=== PATIENT | male | born 1945 | race Caucasian/White ===

== ENCOUNTER 2016-12-02 10:03 | Inpatient (IN) | payer MEDICARE ==
[~2016-12-02] VITALS: Ht 193 cm; Wt 103.9 kg
[2016-12-02 10:22] LABS: BASOPHILS % (AUTO) 0.6 % (0.0-2.0); EOSINOPHILS # (AUTO) 0.1 /CMM (0.0-0.7); EOSINOPHILS % (AUTO) 1.5 % (0.0-6.0); HEMATOCRIT 39 % (39-51); LYMPHOCYTES # (AUTO) 2.2 /CMM (0.8-4.8); LYMPHOCYTES % (AUTO) 36.9 % (20.0-44.0); MEAN CORPUSCULAR HEMOGLOBIN 33 PG (26.0-33.0); MEAN CORPUSCULAR HGB CONC 33 g/dl (31.0-36.0); MEAN CORPUSCULAR VOLUME 99 fL (80-96); MONOCYTES # (AUTO) 0.3 /CMM (0.1-1.30); MONOCYTES % (AUTO) 4.8 % (2.0-12.0); NEUTROPHILS # (AUTO) 3.3 /CMM (1.8-8.9); NEUTROPHILS % (AUTO) 56.2 % (43.0-81.0); PLATELET COUNT (AUTO) 241 /CMM (150-450); RDW COEFFICIENT OF VARIATION 14.1 (11.5-15.0); RED BLOOD CELL COUNT(AUTO) 3.95 MIL/uL (4.5-6.0); WHITE BLOOD COUNT (AUTO) 5.9 K/uL (4.3-11.0)
[2016-12-02] MEDS ORDERED: ASPIRIN 325 MG TABLET ONE (10:22)
[2016-12-02] MEDS ORDERED: ONDANSETRON HCL/PF 4 MG/2 ML VIAL ONE (10:23)
[2016-12-02] MEDS ORDERED: HYDROMORPHONE 1 MG/1 ML DISP.SYRIN ONE (10:23)
[2016-12-02] MEDS ORDERED: HYDROMORPHONE INJ 2 MG/ML DISP.SYRIN IV ONE (10:30)
[2016-12-02] MEDS ORDERED: ONDANSETRON HCL/PF - ER 4 MG/2 ML VIAL IV ONE (10:30)
[2016-12-02] MEDS ORDERED: ASPIRIN 325 MG TABLET PO ONE (10:30)
[2016-12-02 10:32] LABS: CALCIUM, SERUM 9.3 mg/dL (8.5-10.1); CREATININE 1.1 mg/dL (0.6-1.3); POTASSIUM 4.1 mmol/L (3.5-5.1)
[2016-12-02 10:36] LABS: PROTHROMBIN TIME 10.4 SECS (9.5-12.7)
[2016-12-02 10:38] LABS: ALBUMIN 3.6 g/dL (3.4-5.0); BILIRUBIN,DIRECT 0.1 mg/dL (0.0-0.2); BILIRUBIN,TOTAL 0.4 mg/dL (0.2-1.0)
[2016-12-02] MEDS ORDERED: ONDA4VIA30 IV (10:38)
[2016-12-02] MEDS ORDERED: FURO-144 PO (10:38)
[2016-12-02 10:40] LABS: TROPONIN I 0.025 ng/mL (0.00-0.056)
[2016-12-02] MEDS ORDERED: METO25TA6 PO (10:45)
[2016-12-02] MEDS ORDERED: ALLO100T PO (10:45)
[2016-12-02] MEDS ORDERED: FURO40TA5 PO (10:45)
[2016-12-02] MEDS ORDERED: POTA10TA15 PO (10:45)
[2016-12-02] MEDS ORDERED: DIGO125T PO (10:45)
[2016-12-02] MEDS ORDERED: PANT40TA4 PO (10:45)
[2016-12-02] MEDS ORDERED: PREG100C PO (10:45)
[2016-12-02] MEDS ORDERED: APIX5TAB PO (10:45)
[2016-12-02] MEDS ORDERED: VANC125C11 PO (10:45)
[2016-12-02] MEDS ORDERED: LISI2.5T2 PO (10:45)
[2016-12-02] MEDS ORDERED: BUSP10TA35 PO (10:51)
[2016-12-02] MEDS ORDERED: HYDR2TAB7 PO (10:51)
[2016-12-02] MEDS ORDERED: ACET-868 PO (10:51)
[2016-12-02] MEDS ORDERED: CLON0.5T4 PO (10:51)
[2016-12-02] MEDS ORDERED: HYDR4TAB57 PO (10:51)
[2016-12-02] MEDS ORDERED: DULO60CA45 PO (10:51)
[2016-12-02 13:40] VITALS: BP 127/84
[2016-12-02 14:00] VITALS: BP 126/75
[2016-12-02] MEDS ORDERED: DOCUSATE SODIUM 100 MG CAPSULE PO PRN (15:30)
[2016-12-02] MEDS ORDERED: ACETAMINOPHEN 325 MG TABLET PO PRN (15:30)
[2016-12-02] MEDS ORDERED: FUROSEMIDE 40 MG TABLET PO SCH (15:30)
[2016-12-02] MEDS ORDERED: ONDANSETRON HCL/PF 4 MG/2 ML VIAL IVP PRN (15:30)
[2016-12-02] MEDS ORDERED: DIGOXIN 0.125 MG TABLET PO SCH (15:30)
[2016-12-02] MEDS ORDERED: ZOLPIDEM TARTRATE 5 MG TABLET PO PRN (15:30)
[2016-12-02] MEDS ORDERED: ONDANSETRON HCL/PF 4 MG/2 ML VIAL IV PRN (15:30)
[2016-12-02] MEDS ORDERED: NITROGLYCERIN 0.4 MG/TAB BOTTLE SL PRN (15:30)
[2016-12-02] MEDS ORDERED: HYDROMORPHONE HCL 4 MG PO PRN (15:30)
[2016-12-02 16:00] VITALS: BP 135/86
[2016-12-02] MEDS: PANTOPRAZOLE 40 MG TABLET.DR PO SCH (16:16)
[2016-12-02] MEDS: busPIRone 5 MG TABLET PO SCH (16:20)
[2016-12-02] MEDS: POTASSIUM CHLORIDE 10 MEQ TABLET.SA PO SCH (16:20)
[2016-12-02] MEDS: ALLOPURINOL 100 MG TABLET PO SCH (16:20)
[2016-12-02] MEDS: DULOXETINE HCL 30 MG CAPSULE.DR PO SCH (16:21)
[2016-12-02] MEDS: clonazePAM 0.5 MG TABLET PO SCH (16:23)
[2016-12-02] MEDS: PREGABALIN 100 MG CAPSULE PO SCH (16:23)
[2016-12-02] MEDS: FUROSEMIDE 40 MG TABLET PO SCH (16:23)
[2016-12-02] MEDS: LISINOPRIL (5MG) 5 MG TABLET PO SCH (16:24)
[2016-12-02] MEDS: VANCOMYCIN HCL 125 MG/2.5 ML ORAL.SUSP PO SCH ×2 (18:08→21:14)
[2016-12-02] MEDS: DIGOXIN 0.125 MG TABLET PO SCH (18:11)
[2016-12-02] MEDS: METOPROLOL TARTRATE 25 MG TABLET PO SCH (18:12)
[2016-12-02] MEDS: APIXABAN 5 MG TABLET PO SCH (18:13)
[2016-12-02] MEDS: HYDROMORPHONE HCL 2 MG TABLET PO PRN ×2 (18:14→21:15)
[2016-12-02 20:00] VITALS: BP 111/74
[2016-12-02] MEDS: CARVEDILOL 6.25 MG TABLET PO SCH (21:00)
[2016-12-03] VITALS: BP 107/78
[2016-12-03] MEDS: HYDROMORPHONE HCL 2 MG TABLET PO PRN (01:08)
[2016-12-03 04:00] VITALS: BP 105/70
[2016-12-03] MEDS ORDERED: HYDROMORPHONE INJ 2 MG/ML DISP.SYRIN ONE (05:04)
[2016-12-03] MEDS: HYDROMORPHONE INJ 2 MG/ML DISP.SYRIN IV PRN ×5 (06:07→23:43)
[2016-12-03 08:00] VITALS: BP 132/73
[2016-12-03 08:09] LABS: BASOPHILS % (AUTO) 0.4 % (0.0-2.0); EOSINOPHILS # (AUTO) 0.1 /CMM (0.0-0.7); HEMATOCRIT 38 % (39-51); HEMOGLOBIN 12.9 g/dL (13.5-17.5); LYMPHOCYTES # (AUTO) 1.6 /CMM (0.8-4.8); LYMPHOCYTES % (AUTO) 32.3 % (20.0-44.0); MEAN CORPUSCULAR HEMOGLOBIN 33 PG (26.0-33.0); MEAN CORPUSCULAR HGB CONC 34 g/dl (31.0-36.0); MEAN CORPUSCULAR VOLUME 100 fL (80-96); MONOCYTES # (AUTO) 0.3 /CMM (0.1-1.30); MONOCYTES % (AUTO) 5.4 % (2.0-12.0); NEUTROPHILS % (AUTO) 59.9 % (43.0-81.0); PLATELET COUNT (AUTO) 221 /CMM (150-450); RDW COEFFICIENT OF VARIATION 14.6 (11.5-15.0); RED BLOOD CELL COUNT(AUTO) 3.86 MIL/uL (4.5-6.0); WHITE BLOOD COUNT (AUTO) 5.1 K/uL (4.3-11.0)
[2016-12-03 08:37] LABS: CALCIUM, SERUM 9.4 mg/dL (8.5-10.1); CREATININE 0.9 mg/dL (0.6-1.3); MAGNESIUM 1.8 mg/dL (1.8-2.4); POTASSIUM 4.4 mmol/L (3.5-5.1)
[2016-12-03] MEDS: DULOXETINE HCL 30 MG CAPSULE.DR PO SCH ×2 (08:46→17:00)
[2016-12-03] MEDS: DIGOXIN 0.125 MG TABLET PO SCH (08:46)
[2016-12-03] MEDS: PANTOPRAZOLE 40 MG TABLET.DR PO SCH (08:47)
[2016-12-03] MEDS: clonazePAM 0.5 MG TABLET PO SCH ×2 (08:47→17:00)
[2016-12-03] MEDS: ASPIRIN 81 MG TAB.CHEW PO SCH (08:47)
[2016-12-03] MEDS: PREGABALIN 100 MG CAPSULE PO SCH ×2 (08:47→17:01)
[2016-12-03] MEDS: ALLOPURINOL 100 MG TABLET PO SCH ×2 (08:47→17:00)
[2016-12-03] MEDS: LISINOPRIL (5MG) 5 MG TABLET PO SCH (08:47)
[2016-12-03] MEDS: busPIRone 5 MG TABLET PO SCH ×3 (08:47→17:01)
[2016-12-03] MEDS: CARVEDILOL 6.25 MG TABLET PO SCH ×2 (08:48→21:34)
[2016-12-03] MEDS: POTASSIUM CHLORIDE 10 MEQ TABLET.SA PO SCH (08:48)
[2016-12-03] MEDS: FUROSEMIDE 40 MG TABLET PO SCH (08:48)
[2016-12-03] MEDS: METOPROLOL TARTRATE 25 MG TABLET PO SCH ×2 (08:48→17:07)
[2016-12-03] MEDS: APIXABAN 5 MG TABLET PO SCH ×2 (08:57→17:06)
[2016-12-03] MEDS: VANCOMYCIN HCL 125 MG/2.5 ML ORAL.SUSP PO SCH ×4 (08:58→21:34)
[2016-12-03] MEDS: MUPIROCIN OINT 2% 22 GM TUBE TP SCH ×2 (14:16→23:44)
[2016-12-03 16:00] VITALS: BP 111/58
[2016-12-03 20:00] VITALS: BP_SYST 104; BP_SYST 105; BP_DIAS 74
[2016-12-03] MEDS: MINERAL OIL/PETROLATUM,WHITE 120 GM JAR TP PRN (21:34)
[2016-12-03] MEDS: ATORVASTATIN 10 MG TABLET PO SCH (21:34)
[2016-12-04] MEDS: HYDROMORPHONE INJ 2 MG/ML DISP.SYRIN IV PRN ×5 (03:33→20:25)
[2016-12-04] MEDS: PANTOPRAZOLE 40 MG TABLET.DR PO SCH (07:52)
[2016-12-04 08:00] VITALS: BP 125/73
[2016-12-04] MEDS: busPIRone 5 MG TABLET PO SCH ×3 (08:19→16:19)
[2016-12-04] MEDS: POTASSIUM CHLORIDE 10 MEQ TABLET.SA PO SCH (08:19)
[2016-12-04] MEDS: PREGABALIN 100 MG CAPSULE PO SCH ×2 (08:19→16:19)
[2016-12-04] MEDS: CARVEDILOL 6.25 MG TABLET PO SCH ×2 (08:20→22:02)
[2016-12-04] MEDS: clonazePAM 0.5 MG TABLET PO SCH ×2 (08:20→16:19)
[2016-12-04] MEDS: LISINOPRIL (5MG) 5 MG TABLET PO SCH (08:20)
[2016-12-04] MEDS: DIGOXIN 0.125 MG TABLET PO SCH (08:20)
[2016-12-04] MEDS: DULOXETINE HCL 30 MG CAPSULE.DR PO SCH ×2 (08:20→16:19)
[2016-12-04] MEDS: METOPROLOL TARTRATE 25 MG TABLET PO SCH (08:21)
[2016-12-04] MEDS: ASPIRIN 81 MG TAB.CHEW PO SCH (08:21)
[2016-12-04] MEDS: FUROSEMIDE 40 MG TABLET PO SCH (08:21)
[2016-12-04] MEDS: ALLOPURINOL 100 MG TABLET PO SCH ×2 (08:21→16:19)
[2016-12-04] MEDS: APIXABAN 5 MG TABLET PO SCH ×2 (08:27→16:19)
[2016-12-04] MEDS: VANCOMYCIN HCL 125 MG/2.5 ML ORAL.SUSP PO SCH ×4 (08:27→22:02)
[2016-12-04] MEDS ORDERED: REGADENOSON 0.4 MG/5 ML DISP.SYRIN IVP ONE (12:30)
[2016-12-04] MEDS: MUPIROCIN OINT 2% 22 GM TUBE TP SCH (12:38)
[2016-12-04 16:00] VITALS: BP 116/73
[2016-12-04 20:00] VITALS: BP 108/70
[2016-12-04 20:14] VITALS: BP 108/70
[2016-12-04] MEDS: ATORVASTATIN 10 MG TABLET PO SCH (22:02)
[2016-12-05] MEDS: MUPIROCIN OINT 2% 22 GM TUBE TP SCH ×2 (00:27→13:12)
[2016-12-05] MEDS: HYDROMORPHONE INJ 2 MG/ML DISP.SYRIN IV PRN ×6 (00:28→22:18)
[2016-12-05] MEDS: MINERAL OIL/PETROLATUM,WHITE 120 GM JAR TP PRN (04:29)
[2016-12-05 08:00] VITALS: BP_SYST 105; BP_SYST 108; BP_DIAS 62; BP_DIAS 67
[2016-12-05] MEDS: PANTOPRAZOLE 40 MG TABLET.DR PO SCH (08:55)
[2016-12-05] MEDS: DULOXETINE HCL 30 MG CAPSULE.DR PO SCH ×2 (08:55→17:34)
[2016-12-05] MEDS: ALLOPURINOL 100 MG TABLET PO SCH ×2 (08:55→17:33)
[2016-12-05] MEDS: PREGABALIN 100 MG CAPSULE PO SCH ×2 (08:55→17:33)
[2016-12-05] MEDS: ASPIRIN 81 MG TAB.CHEW PO SCH (08:55)
[2016-12-05] MEDS: busPIRone 5 MG TABLET PO SCH ×3 (08:56→17:33)
[2016-12-05] MEDS: FUROSEMIDE 40 MG TABLET PO SCH (08:56)
[2016-12-05] MEDS: POTASSIUM CHLORIDE 10 MEQ TABLET.SA PO SCH (08:57)
[2016-12-05] MEDS: clonazePAM 0.5 MG TABLET PO SCH ×2 (08:57→17:33)
[2016-12-05] MEDS: DIGOXIN 0.125 MG TABLET PO SCH (08:57)
[2016-12-05] MEDS: VANCOMYCIN HCL 125 MG/2.5 ML ORAL.SUSP PO SCH ×4 (08:59→22:00)
[2016-12-05] MEDS: CARVEDILOL 6.25 MG TABLET PO SCH ×2 (09:00→22:00)
[2016-12-05] MEDS: LISINOPRIL (5MG) 5 MG TABLET PO SCH (09:00)
[2016-12-05] MEDS: APIXABAN 5 MG TABLET PO SCH ×2 (09:07→17:34)
[2016-12-05 10:00] VITALS: BP 105/62
[2016-12-05 16:00] VITALS: BP 112/51
[2016-12-05 16:02] VITALS: BP 112/51
[2016-12-05 20:00] VITALS: BP 134/78
[2016-12-05] MEDS: ATORVASTATIN 10 MG TABLET PO SCH (21:59)
[2016-12-05 22:00] VITALS: BP 134/74
[2016-12-06] MEDS: MUPIROCIN OINT 2% 22 GM TUBE TP SCH
[2016-12-06] MEDS: HYDROMORPHONE INJ 2 MG/ML DISP.SYRIN IV PRN ×3 (02:22→10:45)
[2016-12-06] MEDS: PANTOPRAZOLE 40 MG TABLET.DR PO SCH (06:36)
[2016-12-06 08:00] VITALS: BP 122/76
[2016-12-06] MEDS: DULOXETINE HCL 30 MG CAPSULE.DR PO SCH (08:57)
[2016-12-06] MEDS: FUROSEMIDE 40 MG TABLET PO SCH (08:57)
[2016-12-06] MEDS: ALLOPURINOL 100 MG TABLET PO SCH (08:57)
[2016-12-06] MEDS: VANCOMYCIN HCL 125 MG/2.5 ML ORAL.SUSP PO SCH (08:57)
[2016-12-06] MEDS: POTASSIUM CHLORIDE 10 MEQ TABLET.SA PO SCH (08:57)
[2016-12-06] MEDS: PREGABALIN 100 MG CAPSULE PO SCH (08:57)
[2016-12-06] MEDS: DIGOXIN 0.125 MG TABLET PO SCH (08:57)
[2016-12-06] MEDS: clonazePAM 0.5 MG TABLET PO SCH (08:58)
[2016-12-06] MEDS: CARVEDILOL 6.25 MG TABLET PO SCH (08:58)
[2016-12-06 08:59] VITALS: BP 122/76
[2016-12-06] MEDS: ASPIRIN 81 MG TAB.CHEW PO SCH (08:59)
[2016-12-06] MEDS: LISINOPRIL (5MG) 5 MG TABLET PO SCH (08:59)
[2016-12-06] MEDS: busPIRone 5 MG TABLET PO SCH (08:59)
[2016-12-06] MEDS: APIXABAN 5 MG TABLET PO SCH (09:00)
[2016-12-06] MEDS ORDERED: HYDR-552 PO (09:56)
[2016-12-06] MEDS ORDERED: DICL30AD3 IVP (09:56)
[2016-12-06] MEDS ORDERED: NORT25CA PO (09:56)
== END 2016-12-06 11:10 | DRG 167 ==
LOC: ER 10:06 → TELE 13:09 → MED 12-03 09:01
PROVIDERS: ADMIT Internal Medicine; ATTEND Internal Medicine
PROC: 0JBQ0ZZ Excision of Right Foot Subcutaneous Tissue and Fascia, Open Approach (ICD-10-PCS; principal; 2016-12-04)
PROC: 0JBR0ZZ Excision of Left Foot Subcutaneous Tissue and Fascia, Open Approach (ICD-10-PCS; 2016-12-04)
DX: M94.0 Chondrocostal junction syndrome [Tietze] (principal); I50.32 Chronic diastolic (congestive) heart failure; I42.9 Cardiomyopathy, unspecified; D68.59 Other primary thrombophilia; I11.0 Hypertensive heart disease with heart failure; I48.2 Chronic atrial fibrillation; G89.29 Other chronic pain; I25.10 Atherosclerotic heart disease of native coronary artery without angina pectoris; M48.06 Spinal stenosis, lumbar region; L97.529 Non-pressure chronic ulcer of other part of left foot with unspecified severity; M10.9 Gout, unspecified; Z95.810 Presence of automatic (implantable) cardiac defibrillator; Z86.19 Personal history of other infectious and parasitic diseases; I87.2 Venous insufficiency (chronic) (peripheral); L97.519 Non-pressure chronic ulcer of other part of right foot with unspecified severity; M20.5X9 Other deformities of toe(s) (acquired), unspecified foot; R29.6 Repeated falls
CPT/HCPCS: 36415; 71010-TC; 80048-TC; 80061-TC; 80076-TC; 80162-TC; 83735-TC; 84100-TC; 84484-TC; 85025-TC; 85730-TC; 87081-TC; 93307-TC; 97001-TC; A4606; A6402; A9502; J1170; J2405; J2785; Z7610

== ENCOUNTER 2016-12-21 14:13 | Inpatient (IN) | payer MEDICARE ==
[~2016-12-21] VITALS: Ht 190.5 cm; Wt 102.1 kg
[~2016-12-21 14:13] MED LIST: ACET-868 PO; ALLO100T PO; APIX5TAB PO; BUSP10TA35 PO; CLON0.5T4 PO; DICL30AD3 IVP; DIGO125T PO; DULO60CA45 PO; FURO-144 PO; FURO40TA5 PO; HYDR-552 PO; LISI2.5T2 PO; METO25TA6 PO; NORT25CA PO; ONDA4VIA30 IV; PANT40TA4 PO; POTA10TA15 PO; PREG100C PO; VANC125C11 PO
[2016-12-21] MEDS ORDERED: ONDANSETRON HCL/PF 4 MG/2 ML VIAL ONE (14:43)
[2016-12-21] MEDS ORDERED: HYDROMORPHONE 1 MG/1 ML DISP.SYRIN ONE (14:44)
[2016-12-21 14:51] LABS: BASOPHILS % (AUTO) 0.7 % (0.0-2.0); EOSINOPHILS # (AUTO) 0.3 /CMM (0.0-0.7); EOSINOPHILS % (AUTO) 4.2 % (0.0-6.0); HEMATOCRIT 41 % (39-51); HEMOGLOBIN 13.8 g/dL (13.5-17.5); LYMPHOCYTES % (AUTO) 30.1 % (20.0-44.0); MEAN CORPUSCULAR HEMOGLOBIN 33 PG (26.0-33.0); MEAN CORPUSCULAR HGB CONC 34 g/dl (31.0-36.0); MEAN CORPUSCULAR VOLUME 98 fL (80-96); MONOCYTES # (AUTO) 0.4 /CMM (0.1-1.30); MONOCYTES % (AUTO) 5.7 % (2.0-12.0); NEUTROPHILS # (AUTO) 3.8 /CMM (1.8-8.9); NEUTROPHILS % (AUTO) 59.3 % (43.0-81.0); PLATELET COUNT (AUTO) 216 /CMM (150-450); RDW COEFFICIENT OF VARIATION 13.6 (11.5-15.0); RED BLOOD CELL COUNT(AUTO) 4.18 MIL/uL (4.5-6.0); WHITE BLOOD COUNT (AUTO) 6.5 K/uL (4.3-11.0)
[2016-12-21 15:00] LABS: CALCIUM, SERUM 9.4 mg/dL (8.5-10.1); CREATININE 1.2 mg/dL (0.6-1.3)
[2016-12-21] MEDS ORDERED: HYDROMORPHONE INJ 2 MG/ML DISP.SYRIN IV ONE (15:00)
[2016-12-21] MEDS ORDERED: IV NS 0.9% 500 ML BAG IV ONE (15:00)
[2016-12-21] MEDS ORDERED: ONDANSETRON HCL/PF 4 MG/2 ML VIAL IVP ONE (15:00)
[2016-12-21 15:05] LABS: ALBUMIN 3.7 g/dL (3.4-5.0); BILIRUBIN,DIRECT 0.1 mg/dL (0.0-0.2); BILIRUBIN,TOTAL 0.4 mg/dL (0.2-1.0); TOTAL PROTEIN, SERUM 7.6 g/dL (6.4-8.2)
[2016-12-21] MEDS ORDERED: HYDROMORPHONE INJ 2 MG/ML DISP.SYRIN ONE (15:29)
[2016-12-21] MEDS ORDERED: IV NS 0.9% 1,000 ML BAG IV ONE (15:30)
[2016-12-21] MEDS ORDERED: HYDROMORPHONE 1 MG/1 ML DISP.SYRIN IV ONE (15:30)
[2016-12-21] MEDS ORDERED: DICY20TA11 PO (16:03)
[2016-12-21] MEDS ORDERED: HYDR2DIS IV ×2 (16:03)
[2016-12-21] MEDS ORDERED: CEPH-570 PO (16:03)
[2016-12-21] MEDS ORDERED: IV NS 0.9% 250 ML IV ONE (16:06)
[2016-12-21] MEDS ORDERED: IOHEXOL-300 100 ML VIAL IV ONE (16:06)
[2016-12-21] MEDS ORDERED: LACT1CAP69 PO (16:09)
[2016-12-21] MEDS ORDERED: NITR100C6 PO (16:22)
[2016-12-21] MEDS ORDERED: LIDO35.4 TP (16:22)
[2016-12-21] MEDS ORDERED: MULT1TAB11 PO (16:29)
[2016-12-21 16:30] VITALS: BP 92/59
[2016-12-21] MEDS ORDERED: ONDANSETRON HCL/PF 4 MG/2 ML VIAL IVP PRN (16:30)
[2016-12-21] MEDS ORDERED: MAGNESIUM CITRATE 296 ML BOTTLE PO ONE (16:30)
[2016-12-21] MEDS ORDERED: MAGNESIUM HYDROXIDE 30 ML UDC PO PRN (16:30)
[2016-12-21] MEDS ORDERED: LACTULOSE 10 G/15 ML UDC (PYXIS) PO PRN (16:30)
[2016-12-21] MEDS ORDERED: MAG HYDROX/AL HYDROX/SIMETH 30 ML UDC PO PRN (16:30)
[2016-12-21] MEDS ORDERED: NA PHOS,M-B/NA PHOS,DI-BA 1 EA ENEMA RC PRN (16:30)
[2016-12-21] MEDS ORDERED: ACETAMINOPHEN 325 MG TABLET PO PRN (16:30)
[2016-12-21] MEDS ORDERED: SIME80TA15 PO (16:33)
[2016-12-21] MEDS ORDERED: DICL100G3 TP (16:33)
[2016-12-21] MEDS ORDERED: ASCO500T9 PO (16:33)
[2016-12-21] MEDS ORDERED: ONDA4DIS2 IV (16:37)
[2016-12-21] MEDS ORDERED: LIDOCAINE 5% OINT 35.44 GM TUBE TP PRN (17:30)
[2016-12-21] MEDS ORDERED: ONDANSETRON HCL/PF 4 MG/2 ML VIAL IV PRN (17:30)
[2016-12-21 18:00] VITALS: BP 92/59
[2016-12-21] MEDS: NITROFURANTOIN/NITROFURAN MAC 100 MG CAPSULE PO SCH (18:03)
[2016-12-21] MEDS: IV NS 0.9% 1,000 ML IV PRN (18:46)
[2016-12-21] MEDS: HYDROMORPHONE INJ 2 MG/ML DISP.SYRIN IV PRN (18:50)
[2016-12-21 20:00] VITALS: BP 99/61
[2016-12-21] MEDS: NORTRIPTYLINE HCL 25 MG CAPSULE PO SCH (22:09)
[2016-12-22] MEDS: HYDROMORPHONE INJ 2 MG/ML DISP.SYRIN IV PRN ×6 (01:17→21:32)
[2016-12-22] MEDS: NORTRIPTYLINE HCL 25 MG CAPSULE PO SCH ×3 (05:33→21:31)
[2016-12-22] MEDS: IV NS 0.9% 1,000 ML IV PRN ×2 (06:25→17:30)
[2016-12-22 06:49] LABS: BASOPHILS % (AUTO) 0.5 % (0.0-2.0); EOSINOPHILS # (AUTO) 0.2 /CMM (0.0-0.7); EOSINOPHILS % (AUTO) 3.7 % (0.0-6.0); HEMATOCRIT 36 % (39-51); HEMOGLOBIN 12.3 g/dL (13.5-17.5); LYMPHOCYTES # (AUTO) 1.6 /CMM (0.8-4.8); LYMPHOCYTES % (AUTO) 30.6 % (20.0-44.0); MEAN CORPUSCULAR HEMOGLOBIN 34 PG (26.0-33.0); MEAN CORPUSCULAR HGB CONC 34 g/dl (31.0-36.0); MEAN CORPUSCULAR VOLUME 99 fL (80-96); MONOCYTES # (AUTO) 0.4 /CMM (0.1-1.30); MONOCYTES % (AUTO) 8.3 % (2.0-12.0); NEUTROPHILS # (AUTO) 3.1 /CMM (1.8-8.9); NEUTROPHILS % (AUTO) 56.9 % (43.0-81.0); PLATELET COUNT (AUTO) 168 /CMM (150-450); RDW COEFFICIENT OF VARIATION 14.5 (11.5-15.0); RED BLOOD CELL COUNT(AUTO) 3.64 MIL/uL (4.5-6.0); WHITE BLOOD COUNT (AUTO) 5.4 K/uL (4.3-11.0)
[2016-12-22 07:09] LABS: ALBUMIN 3.1 g/dL (3.4-5.0); BILIRUBIN,TOTAL 0.3 mg/dL (0.2-1.0); CALCIUM, SERUM 9.1 mg/dL (8.5-10.1); CREATININE 0.8 mg/dL (0.6-1.3); MAGNESIUM 2.2 mg/dL (1.8-2.4); PHOSPHORUS 3.9 mg/dL (2.5-4.9); POTASSIUM 3.8 mmol/L (3.5-5.1); TOTAL PROTEIN, SERUM 6.5 g/dL (6.4-8.2)
[2016-12-22 07:22] LABS: THYROID STIMULATING HORMONE 2.004 uIU/mL (0.358-3.74)
[2016-12-22 08:00] VITALS: BP 132/86
[2016-12-22] MEDS: busPIRone 5 MG TABLET PO SCH ×3 (08:34→16:57)
[2016-12-22] MEDS: DULOXETINE HCL 30 MG CAPSULE.DR PO SCH ×2 (08:34→16:57)
[2016-12-22] MEDS: ALLOPURINOL 100 MG TABLET PO SCH ×2 (08:34→16:57)
[2016-12-22] MEDS: SIMETHICONE 80 MG TAB.CHEW PO SCH (08:34)
[2016-12-22] MEDS: FUROSEMIDE 40 MG TABLET PO SCH (08:34)
[2016-12-22] MEDS: NITROFURANTOIN/NITROFURAN MAC 100 MG CAPSULE PO SCH ×2 (08:34→16:59)
[2016-12-22] MEDS: SENNOSIDES/DOCUSATE SODIUM 1 TAB TABLET PO SCH (08:34)
[2016-12-22] MEDS: POTASSIUM CHLORIDE 10 MEQ TABLET.SA PO SCH (08:34)
[2016-12-22] MEDS: DIGOXIN 0.125 MG TABLET PO SCH (08:35)
[2016-12-22] MEDS: PANTOPRAZOLE 40 MG TABLET.DR PO SCH (08:35)
[2016-12-22] MEDS: APIXABAN 5 MG TABLET PO SCH ×2 (08:35→16:58)
[2016-12-22] MEDS: clonazePAM 0.5 MG TABLET PO SCH ×2 (08:35→16:58)
[2016-12-22] MEDS: PREGABALIN 100 MG CAPSULE PO SCH ×2 (08:35→16:59)
[2016-12-22] MEDS: LISINOPRIL (5MG) 5 MG TABLET PO SCH (08:36)
[2016-12-22] MEDS: METOPROLOL TARTRATE 25 MG TABLET PO SCH ×2 (08:36→16:58)
[2016-12-22] MEDS ORDERED: Z GUARD REMEDY 2 OZ OINT TP PRN (14:30)
[2016-12-22 16:00] VITALS: BP 114/78
[2016-12-22 20:00] VITALS: BP 116/76
[2016-12-22] MEDS ORDERED: PEG 3350/NA SULF,BICARB,CL/KCL 4,000 ML BOTTLE PO ONE (22:00)
[2016-12-23] MEDS: HYDROMORPHONE INJ 2 MG/ML DISP.SYRIN IV PRN ×6 (00:31→22:25)
[2016-12-23] MEDS: IV NS 0.9% 1,000 ML IV PRN ×2 (04:37→21:58)
[2016-12-23] MEDS: NORTRIPTYLINE HCL 25 MG CAPSULE PO SCH ×3 (04:41→21:28)
[2016-12-23 07:23] LABS: BASOPHILS % (AUTO) 0.5 % (0.0-2.0); EOSINOPHILS # (AUTO) 0.2 /CMM (0.0-0.7); EOSINOPHILS % (AUTO) 4.5 % (0.0-6.0); HEMATOCRIT 36 % (39-51); HEMOGLOBIN 12.2 g/dL (13.5-17.5); LYMPHOCYTES # (AUTO) 1.9 /CMM (0.8-4.8); LYMPHOCYTES % (AUTO) 35.1 % (20.0-44.0); MEAN CORPUSCULAR HEMOGLOBIN 34 PG (26.0-33.0); MEAN CORPUSCULAR HGB CONC 34 g/dl (31.0-36.0); MEAN CORPUSCULAR VOLUME 100 fL (80-96); MONOCYTES # (AUTO) 0.5 /CMM (0.1-1.30); MONOCYTES % (AUTO) 8.8 % (2.0-12.0); NEUTROPHILS # (AUTO) 2.8 /CMM (1.8-8.9); NEUTROPHILS % (AUTO) 51.1 % (43.0-81.0); PLATELET COUNT (AUTO) 156 /CMM (150-450); RDW COEFFICIENT OF VARIATION 14.2 (11.5-15.0); RED BLOOD CELL COUNT(AUTO) 3.64 MIL/uL (4.5-6.0); WHITE BLOOD COUNT (AUTO) 5.4 K/uL (4.3-11.0)
[2016-12-23 07:58] LABS: CALCIUM, SERUM 8.9 mg/dL (8.5-10.1); CREATININE 0.9 mg/dL (0.6-1.3); MAGNESIUM 1.8 mg/dL (1.8-2.4); PHOSPHORUS 4.1 mg/dL (2.5-4.9); POTASSIUM 3.6 mmol/L (3.5-5.1)
[2016-12-23 08:00] VITALS: BP 120/80
[2016-12-23] MEDS: DULOXETINE HCL 30 MG CAPSULE.DR PO SCH ×2 (08:28→17:22)
[2016-12-23] MEDS: PANTOPRAZOLE 40 MG TABLET.DR PO SCH (08:28)
[2016-12-23] MEDS: SENNOSIDES/DOCUSATE SODIUM 1 TAB TABLET PO SCH (08:28)
[2016-12-23] MEDS: SIMETHICONE 80 MG TAB.CHEW PO SCH (08:29)
[2016-12-23] MEDS: ALLOPURINOL 100 MG TABLET PO SCH ×2 (08:29→17:22)
[2016-12-23] MEDS: DIGOXIN 0.125 MG TABLET PO SCH (08:29)
[2016-12-23] MEDS: METOPROLOL TARTRATE 25 MG TABLET PO SCH ×2 (08:29→17:23)
[2016-12-23] MEDS: FUROSEMIDE 40 MG TABLET PO SCH (08:33)
[2016-12-23] MEDS: busPIRone 5 MG TABLET PO SCH ×3 (08:33→17:22)
[2016-12-23] MEDS: PREGABALIN 100 MG CAPSULE PO SCH ×2 (09:18→17:22)
[2016-12-23] MEDS: clonazePAM 0.5 MG TABLET PO SCH ×2 (09:18→17:22)
[2016-12-23] MEDS: POTASSIUM CHLORIDE 10 MEQ TABLET.SA PO SCH (09:18)
[2016-12-23] MEDS: NITROFURANTOIN/NITROFURAN MAC 100 MG CAPSULE PO SCH ×2 (09:18→17:22)
[2016-12-23] MEDS: LISINOPRIL (5MG) 5 MG TABLET PO SCH (09:19)
[2016-12-23] MEDS: APIXABAN 5 MG TABLET PO SCH ×2 (10:00→17:22)
[2016-12-23] MEDS ORDERED: PEG 3350/NA SULF,BICARB,CL/KCL 4,000 ML BOTTLE PO ONE (11:00)
[2016-12-23 16:00] VITALS: BP 120/63
[2016-12-23 20:00] VITALS: BP 112/72
[2016-12-23 20:31] VITALS: BP 112/72
[2016-12-24] MEDS: HYDROMORPHONE INJ 2 MG/ML DISP.SYRIN IV PRN ×6 (03:51→19:52)
[2016-12-24] MEDS: NORTRIPTYLINE HCL 25 MG CAPSULE PO SCH ×3 (05:19→21:27)
[2016-12-24 05:27] LABS: BASOPHILS % (AUTO) 0.5 % (0.0-2.0); EOSINOPHILS # (AUTO) 0.2 /CMM (0.0-0.7); EOSINOPHILS % (AUTO) 3.7 % (0.0-6.0); HEMATOCRIT 37 % (39-51); HEMOGLOBIN 12.4 g/dL (13.5-17.5); LYMPHOCYTES # (AUTO) 1.4 /CMM (0.8-4.8); LYMPHOCYTES % (AUTO) 25.5 % (20.0-44.0); MEAN CORPUSCULAR HEMOGLOBIN 34 PG (26.0-33.0); MEAN CORPUSCULAR HGB CONC 34 g/dl (31.0-36.0); MEAN CORPUSCULAR VOLUME 99 fL (80-96); MONOCYTES # (AUTO) 0.4 /CMM (0.1-1.30); MONOCYTES % (AUTO) 7.7 % (2.0-12.0); NEUTROPHILS # (AUTO) 3.5 /CMM (1.8-8.9); NEUTROPHILS % (AUTO) 62.6 % (43.0-81.0); PLATELET COUNT (AUTO) 164 /CMM (150-450); RDW COEFFICIENT OF VARIATION 14.4 (11.5-15.0); RED BLOOD CELL COUNT(AUTO) 3.69 MIL/uL (4.5-6.0); WHITE BLOOD COUNT (AUTO) 5.6 K/uL (4.3-11.0)
[2016-12-24 05:41] LABS: CALCIUM, SERUM 9.1 mg/dL (8.5-10.1); CREATININE 0.9 mg/dL (0.6-1.3); MAGNESIUM 1.9 mg/dL (1.8-2.4); PHOSPHORUS 4.3 mg/dL (2.5-4.9); POTASSIUM 3.3 mmol/L (3.5-5.1)
[2016-12-24 08:00] VITALS: BP 98/66
[2016-12-24] MEDS: ALLOPURINOL 100 MG TABLET PO SCH ×2 (08:17→16:27)
[2016-12-24] MEDS: clonazePAM 0.5 MG TABLET PO SCH ×2 (08:17→16:27)
[2016-12-24] MEDS: PREGABALIN 100 MG CAPSULE PO SCH ×2 (08:17→16:26)
[2016-12-24] MEDS: FUROSEMIDE 40 MG TABLET PO SCH (08:17)
[2016-12-24] MEDS: PANTOPRAZOLE 40 MG TABLET.DR PO SCH (08:17)
[2016-12-24] MEDS: busPIRone 5 MG TABLET PO SCH ×3 (08:17→16:27)
[2016-12-24] MEDS: DULOXETINE HCL 30 MG CAPSULE.DR PO SCH ×2 (08:17→16:27)
[2016-12-24] MEDS: POTASSIUM CHLORIDE 10 MEQ TABLET.SA PO SCH (08:18)
[2016-12-24] MEDS: SIMETHICONE 80 MG TAB.CHEW PO SCH (08:18)
[2016-12-24] MEDS: SENNOSIDES/DOCUSATE SODIUM 1 TAB TABLET PO SCH (08:19)
[2016-12-24] MEDS: DIGOXIN 0.125 MG TABLET PO SCH (08:19)
[2016-12-24] MEDS: ZINC SULFATE 220 MG CAPSULE PO SCH (08:22)
[2016-12-24] MEDS: ASCORBIC ACID 500 MG TABLET PO SCH (08:22)
[2016-12-24] MEDS: APIXABAN 5 MG TABLET PO SCH ×2 (08:23→16:36)
[2016-12-24] MEDS: METOPROLOL TARTRATE 25 MG TABLET PO SCH ×2 (09:00→16:34)
[2016-12-24] MEDS: LISINOPRIL (5MG) 5 MG TABLET PO SCH (09:00)
[2016-12-24 09:44] VITALS: BP 102/72
[2016-12-24 10:31] VITALS: BP 105/53
[2016-12-24 10:50] VITALS: BP 124/84
[2016-12-24] MEDS: IV NS 0.9% 1,000 ML IV PRN (10:50)
[2016-12-24 16:00] VITALS: BP 143/87
[2016-12-24] MEDS ORDERED: POTASSIUM CHLORIDE 20 MEQ TAB.PRT.SR PO SCH (18:30)
[2016-12-24 20:00] VITALS: BP 110/71
[2016-12-25] MEDS: IV NS 0.9% 1,000 ML IV PRN ×2 (00:06→15:08)
[2016-12-25] MEDS: HYDROMORPHONE INJ 2 MG/ML DISP.SYRIN IV PRN ×8 (01:01→22:21)
[2016-12-25] MEDS: NORTRIPTYLINE HCL 25 MG CAPSULE PO SCH ×3 (04:03→20:59)
[2016-12-25 06:13] LABS: BASOPHILS % (AUTO) 0.5 % (0.0-2.0); EOSINOPHILS # (AUTO) 0.3 /CMM (0.0-0.7); EOSINOPHILS % (AUTO) 4.7 % (0.0-6.0); HEMATOCRIT 36 % (39-51); HEMOGLOBIN 12.5 g/dL (13.5-17.5); LYMPHOCYTES # (AUTO) 1.7 /CMM (0.8-4.8); LYMPHOCYTES % (AUTO) 30.4 % (20.0-44.0); MEAN CORPUSCULAR HEMOGLOBIN 34 PG (26.0-33.0); MEAN CORPUSCULAR HGB CONC 34 g/dl (31.0-36.0); MEAN CORPUSCULAR VOLUME 99 fL (80-96); MONOCYTES # (AUTO) 0.7 /CMM (0.1-1.30); NEUTROPHILS # (AUTO) 2.9 /CMM (1.8-8.9); NEUTROPHILS % (AUTO) 52.4 % (43.0-81.0); PLATELET COUNT (AUTO) 170 /CMM (150-450); RDW COEFFICIENT OF VARIATION 14.3 (11.5-15.0); RED BLOOD CELL COUNT(AUTO) 3.69 MIL/uL (4.5-6.0); WHITE BLOOD COUNT (AUTO) 5.6 K/uL (4.3-11.0)
[2016-12-25 06:36] LABS: CALCIUM, SERUM 9.1 mg/dL (8.5-10.1); CREATININE 0.8 mg/dL (0.6-1.3); MAGNESIUM 1.9 mg/dL (1.8-2.4); PHOSPHORUS 4.8 mg/dL (2.5-4.9); POTASSIUM 3.7 mmol/L (3.5-5.1)
[2016-12-25 08:00] VITALS: BP_SYST 119; BP_SYST 126; BP_DIAS 73; BP_DIAS 86
[2016-12-25] MEDS: DULOXETINE HCL 30 MG CAPSULE.DR PO SCH ×2 (08:34→16:31)
[2016-12-25] MEDS: APIXABAN 5 MG TABLET PO SCH ×2 (08:34→16:31)
[2016-12-25] MEDS: POTASSIUM CHLORIDE 10 MEQ TABLET.SA PO SCH (08:34)
[2016-12-25] MEDS: PANTOPRAZOLE 40 MG TABLET.DR PO SCH (08:34)
[2016-12-25] MEDS: FUROSEMIDE 40 MG TABLET PO SCH (08:34)
[2016-12-25] MEDS: SIMETHICONE 80 MG TAB.CHEW PO SCH (08:34)
[2016-12-25] MEDS: LISINOPRIL (5MG) 5 MG TABLET PO SCH (08:34)
[2016-12-25] MEDS: ALLOPURINOL 100 MG TABLET PO SCH ×2 (08:35→16:31)
[2016-12-25] MEDS: PREGABALIN 100 MG CAPSULE PO SCH ×2 (08:35→16:31)
[2016-12-25] MEDS: ZINC SULFATE 220 MG CAPSULE PO SCH (08:35)
[2016-12-25] MEDS: clonazePAM 0.5 MG TABLET PO SCH ×2 (08:35→16:31)
[2016-12-25] MEDS: DIGOXIN 0.125 MG TABLET PO SCH (08:35)
[2016-12-25] MEDS: ASCORBIC ACID 500 MG TABLET PO SCH (08:35)
[2016-12-25] MEDS: busPIRone 5 MG TABLET PO SCH ×3 (08:35→16:31)
[2016-12-25] MEDS: SENNOSIDES/DOCUSATE SODIUM 1 TAB TABLET PO SCH (08:35)
[2016-12-25] MEDS: METOPROLOL TARTRATE 25 MG TABLET PO SCH ×2 (09:00→16:31)
[2016-12-25] MEDS ORDERED: PEG 3350/NA SULF,BICARB,CL/KCL 4,000 ML BOTTLE PO ONE (11:00)
[2016-12-25 16:00] VITALS: BP 129/80
[2016-12-25 20:00] VITALS: BP 102/64
[2016-12-25] MEDS ORDERED: MAGNESIUM CITRATE 296 ML BOTTLE PO ONE (20:00)
[2016-12-26 02:00] VITALS: BP 115/71
[2016-12-26] MEDS: HYDROMORPHONE INJ 2 MG/ML DISP.SYRIN IV PRN ×6 (02:04→17:32)
[2016-12-26] MEDS: NORTRIPTYLINE HCL 25 MG CAPSULE PO SCH ×2 (05:00→12:11)
[2016-12-26] MEDS: IV NS 0.9% 1,000 ML IV PRN (05:50)
[2016-12-26 06:44] LABS: BASOPHILS % (AUTO) 0.4 % (0.0-2.0); EOSINOPHILS # (AUTO) 0.2 /CMM (0.0-0.7); EOSINOPHILS % (AUTO) 4.2 % (0.0-6.0); HEMATOCRIT 39 % (39-51); HEMOGLOBIN 13.2 g/dL (13.5-17.5); LYMPHOCYTES % (AUTO) 37.6 % (20.0-44.0); MEAN CORPUSCULAR HEMOGLOBIN 34 PG (26.0-33.0); MEAN CORPUSCULAR HGB CONC 34 g/dl (31.0-36.0); MEAN CORPUSCULAR VOLUME 99 fL (80-96); MONOCYTES # (AUTO) 0.4 /CMM (0.1-1.30); NEUTROPHILS # (AUTO) 2.7 /CMM (1.8-8.9); NEUTROPHILS % (AUTO) 50.8 % (43.0-81.0); PLATELET COUNT (AUTO) 172 /CMM (150-450); RDW COEFFICIENT OF VARIATION 14.6 (11.5-15.0); RED BLOOD CELL COUNT(AUTO) 3.93 MIL/uL (4.5-6.0); WHITE BLOOD COUNT (AUTO) 5.4 K/uL (4.3-11.0)
[2016-12-26 06:54] LABS: INR 1.01 (0.87-1.13); PROTHROMBIN TIME 10.8 SECS (9.5-12.7)
[2016-12-26 07:06] LABS: CALCIUM, SERUM 9.3 mg/dL (8.5-10.1); CREATININE 0.6 mg/dL (0.6-1.3); POTASSIUM 3.9 mmol/L (3.5-5.1)
[2016-12-26] MEDS: PANTOPRAZOLE 40 MG TABLET.DR PO SCH (07:30)
[2016-12-26 08:00] VITALS: BP 122/79
[2016-12-26] MEDS: DULOXETINE HCL 30 MG CAPSULE.DR PO SCH ×2 (08:21→16:22)
[2016-12-26] MEDS: APIXABAN 5 MG TABLET PO SCH ×2 (08:21→16:22)
[2016-12-26] MEDS: busPIRone 5 MG TABLET PO SCH ×3 (08:21→16:23)
[2016-12-26] MEDS: DIGOXIN 0.125 MG TABLET PO SCH (08:21)
[2016-12-26] MEDS: PREGABALIN 100 MG CAPSULE PO SCH ×2 (08:22→16:23)
[2016-12-26] MEDS: SIMETHICONE 80 MG TAB.CHEW PO SCH (08:22)
[2016-12-26] MEDS: POTASSIUM CHLORIDE 10 MEQ TABLET.SA PO SCH (08:22)
[2016-12-26] MEDS: LISINOPRIL (5MG) 5 MG TABLET PO SCH (08:22)
[2016-12-26] MEDS: clonazePAM 0.5 MG TABLET PO SCH ×2 (08:22→16:23)
[2016-12-26] MEDS: METOPROLOL TARTRATE 25 MG TABLET PO SCH ×2 (08:22→16:22)
[2016-12-26] MEDS: FUROSEMIDE 40 MG TABLET PO SCH (08:22)
[2016-12-26] MEDS: SENNOSIDES/DOCUSATE SODIUM 1 TAB TABLET PO SCH (08:23)
[2016-12-26] MEDS: ALLOPURINOL 100 MG TABLET PO SCH ×2 (08:23→16:23)
[2016-12-26] MEDS: ZINC SULFATE 220 MG CAPSULE PO SCH (08:23)
[2016-12-26] MEDS: ASCORBIC ACID 500 MG TABLET PO SCH (08:23)
[2016-12-26 16:00] VITALS: BP 107/65
[2016-12-26 16:22] VITALS: BP 107/65
[2016-12-26] MEDS ORDERED: POLYETHYLENE GLYCOL 3350 17 GM POWD.PACK PO SCH (22:00)
== END 2016-12-26 18:30 | DRG 551 ==
LOC: ER 14:14 → MED 15:53 → MEDSG2 15:53 → MED 12-22 16:13
PROVIDERS: ADMIT Internal Medicine; ATTEND Internal Medicine
PROC: 0DJD8ZZ Inspection of Lower Intestinal Tract, Via Natural or Artificial Opening Endoscopic (ICD-10-PCS; principal; 2016-12-26 09:15)
DX: M48.06 Spinal stenosis, lumbar region (principal); N17.0 Acute kidney failure with tubular necrosis; K59.00 Constipation, unspecified; I10 Essential (primary) hypertension; I25.10 Atherosclerotic heart disease of native coronary artery without angina pectoris; F41.9 Anxiety disorder, unspecified; G89.4 Chronic pain syndrome; I48.91 Unspecified atrial fibrillation; K21.9 Gastro-esophageal reflux disease without esophagitis; M20.40 Other hammer toe(s) (acquired), unspecified foot; K42.9 Umbilical hernia without obstruction or gangrene; K43.9 Ventral hernia without obstruction or gangrene; Z95.0 Presence of cardiac pacemaker; Z79.01 Long term (current) use of anticoagulants; N40.0 Benign prostatic hyperplasia without lower urinary tract symptoms; I87.2 Venous insufficiency (chronic) (peripheral); L97.519 Non-pressure chronic ulcer of other part of right foot with unspecified severity; L97.529 Non-pressure chronic ulcer of other part of left foot with unspecified severity; G62.9 Polyneuropathy, unspecified; K59.4 Anal spasm; L98.8 Other specified disorders of the skin and subcutaneous tissue; L89.151 Pressure ulcer of sacral region, stage 1; M21.612 Bunion of left foot; M21.611 Bunion of right foot; R32 Unspecified urinary incontinence
CPT/HCPCS: 36415; 71010-TC; 72131-TC; 74020-TC; 80048-TC; 80053-TC; 80061-TC; 80076-TC; 80162-TC; 83605-TC; 83690-TC; 83735-TC; 84100-TC; 84443-TC; 85025-TC; 85610-TC; 85730-TC; 86850-TC; 87040-TC; 87081-TC; A4606; J1170; J2405; J7030; J7040; J7050; Q9967; Z7610

== ENCOUNTER 2016-12-30 18:37 | Inpatient (IN) | payer MEDICARE ==
[~2016-12-30] VITALS: Ht 190.5 cm; Wt 105.2 kg
[~2016-12-30 18:37] MED LIST changes: +ASCO500T9 PO; +CEPH-570 PO; +DICL100G3 TP; -DICL30AD3 IVP; +DICY20TA11 PO; -FURO40TA5 PO; -HYDR-552 PO; +HYDR2DIS IV; +LACT1CAP69 PO; +LIDO35.4 TP; +MULT1TAB11 PO; +NITR100C6 PO; +SIME80TA15 PO; -VANC125C11 PO
--- NOTE | 2016-12-30 18:59 | NUR ---
pt to ed room 04. abdominal pain x 4 days. a/a/o. changed to gown. side raisl up. hob elevated. connected to monitor. seen and evaluated by ed provider.
[2016-12-30] MEDS ORDERED: NORT25CA PO (19:06)
[2016-12-30] MEDS ORDERED: ACID1TAB12 PO (19:06)
[2016-12-30] MEDS ORDERED: AMIN30LI4 PO (19:07)
--- NOTE | 2016-12-30 19:08 | NUR ---
chest x-ray at bedside
[2016-12-30 19:12] LABS: BASOPHILS # (AUTO) 0.1 /CMM (0.0-0.2); BASOPHILS % (AUTO) 0.7 % (0.0-2.0); EOSINOPHILS # (AUTO) 0.2 /CMM (0.0-0.7); EOSINOPHILS % (AUTO) 2.1 % (0.0-6.0); HEMATOCRIT 41 % (39-51); HEMOGLOBIN 13.3 g/dL (13.5-17.5); LYMPHOCYTES % (AUTO) 24.9 % (20.0-44.0); MEAN CORPUSCULAR HEMOGLOBIN 32 PG (26.0-33.0); MEAN CORPUSCULAR HGB CONC 33 g/dl (31.0-36.0); MEAN CORPUSCULAR VOLUME 99 fL (80-96); MONOCYTES # (AUTO) 0.5 /CMM (0.1-1.30); MONOCYTES % (AUTO) 6.5 % (2.0-12.0); NEUTROPHILS # (AUTO) 5.3 /CMM (1.8-8.9); NEUTROPHILS % (AUTO) 65.8 % (43.0-81.0); PLATELET COUNT (AUTO) 222 /CMM (150-450); RDW COEFFICIENT OF VARIATION 13.5 (11.5-15.0); RED BLOOD CELL COUNT(AUTO) 4.11 MIL/uL (4.5-6.0); WHITE BLOOD COUNT (AUTO) 8.1 K/uL (4.3-11.0)
--- NOTE | 2016-12-30 19:13 | NUR ---
ekg at bedside
[2016-12-30 19:22] LABS: CALCIUM, SERUM 9.3 mg/dL (8.5-10.1); CARBON DIOXIDE 30 mmol/L (21-32); CHLORIDE 103 mmol/L (98-107); CREATININE 1.1 mg/dL (0.6-1.3); GLUCOSE 112 mg/dL (74-106); POTASSIUM 3.4 mmol/L (3.5-5.1); SODIUM SERUM 138 mmol/L (136-145); UREA NITROGEN, BLOOD 19 mg/dL (7-18)
[2016-12-30 19:25] LABS: INR 1.11 (0.87-1.13); PROTHROMBIN TIME 11.6 SECS (9.5-12.7)
[2016-12-30 19:28] LABS: ALANINE AMINOTRANSFERASE 12 U/L (12-78); ALBUMIN 3.6 g/dL (3.4-5.0); ALKALINE PHOSPHATASE 70 U/L (46-116); ASPARTATE AMINOTRANSFERASE 13 U/L (15-37); BILIRUBIN,DIRECT 0.1 mg/dL (0.0-0.2); BILIRUBIN,TOTAL 0.4 mg/dL (0.2-1.0); TOTAL PROTEIN, SERUM 7.2 g/dL (6.4-8.2)
[2016-12-30 19:29] LABS: TROPONIN I < 0.017 ng/mL (0.00-0.056)
--- NOTE | 2016-12-30 20:41 | NUR ---
CALLED [employer], CARDIOPULMONARY SPECIALIST WAS PAGED.
--- NOTE | 2016-12-30 21:20 | NUR ---
REPORT CALLED TO M/S AGGIE BOWSER. PT WILL BE GOING TO ROOM 315-2.
--- NOTE | 2016-12-30 21:45 | NUR ---
RN ADMITTING NOTES: ADMITTED A 71 YO MALE PATIENT, WHO WAS BROUGHT TO THE ER FROM [facility] FOR SEVERE ABDOMINAL PAIN AND ABDOMINAL DISTENTION. PATIENT WAS BROUGHT TO THE FLOOR VIA [facility], AOX4, ON O2 AT 3 LPM VIA NC, BREATHING EVEN AND UNLABORED, BREATH SOUNDS CLEAR TO AUSCULTATION. PATIENT OPTED NOT TO USE THE NASAL CANNULA SOON HE WAS BROUGHT TO ROOM. O2 SAT 96% ON ROOM AIR. PATIENT HAS A VERY DISTENDED ABDOMEN, RIGID TO TOUCH, AND HE IS COMPLAINING OF SEVERE PAIN SCALED AT 10/10. 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 PIV OVER LFA G 22 INTACT AND PATENT TO FLUSH. ADMITTING CARE DONE. PROVIDED FOR COMFORT AND SAFETY. WILL CONT TO MONITOR.
[2016-12-30 22:00] VITALS: BP 164/80
--- NOTE | 2016-12-30 22:20 | NUR ---
RN NOTES: ANDREW ANN DRYWALL METAL STUD WORKER AT BEDSIDE WITH PATIENT.
[2016-12-30] MEDS ORDERED: IV NS 0.9% 1,000 ML IV PRN (22:40)
[2016-12-30] MEDS ORDERED: MAG HYDROX/AL HYDROX/SIMETH 30 ML UDC PO PRN (23:00)
[2016-12-30] MEDS ORDERED: HYDROCODONE/APAP 5/325MG 1 EACH TABLET PO PRN (23:00)
[2016-12-30] MEDS ORDERED: Z GUARD REMEDY 2 OZ OINT TP PRN (23:00)
[2016-12-30] MEDS ORDERED: MAGNESIUM HYDROXIDE 30 ML UDC PO PRN (23:00)
[2016-12-30] MEDS ORDERED: ONDANSETRON HCL/PF 4 MG/2 ML VIAL IVP PRN (23:00)
[2016-12-30] MEDS ORDERED: ACETAMINOPHEN 325 MG TABLET PO PRN (23:00)
[2016-12-30] MEDS ORDERED: HYDROMORPHONE INJ 2 MG/ML DISP.SYRIN ONE (23:06)
[2016-12-30] MEDS: HYDROMORPHONE INJ 2 MG/ML DISP.SYRIN IV PRN (23:09)
--- NOTE | 2016-12-30 23:18 | NUR ---
RN NOTES: ABDOMINAL PAIN SCALED AT 10/10. ADMINISTERED DILAUDID 2 MG IV. WILL CONT TO MONITOR.
[2016-12-30] MEDS ORDERED: POTASSIUM CHLORIDE 10 MEQ TABLET.SA PO ONE (23:30)
--- NOTE | 2016-12-30 23:30 | NUR ---
RN NOTES: CALLED ANDREW ANN NP, TO INFORM RE PT'S K: 3.4. PER ANDREW, OK TO GIVE K DUR 10 MEQS AT THIS TIME. ALSO ORDERED FOR UA SINCE PATIENT STATES THAT HE HAS DYSURIA. ORDERS NOTED AND CARRIED OUT.
[2016-12-30] MEDS ORDERED: POTASSIUM CHLORIDE 10 MEQ TABLET.SA ONE (23:38)
[2016-12-31] MEDS ORDERED: ONDANSETRON HCL/PF 4 MG/2 ML VIAL ONE (03:43)
[2016-12-31] MEDS ORDERED: HYDROMORPHONE INJ 2 MG/ML DISP.SYRIN ONE (03:44)
[2016-12-31] MEDS: HYDROMORPHONE INJ 2 MG/ML DISP.SYRIN IV PRN ×5 (03:50→23:07)
--- NOTE | 2016-12-31 03:54 | NUR ---
RN NOTES: PT COMPLAINS OF SEVERE PAIN 9/10 OVER ABDOMEN WITH NAUSEA. ADMINISTERED DILAUDID 2 MG AND ZOFRAN IV. BOP CHECEKD AT 138/74, HR: 103. WILL CONT TO MONITOR.
[2016-12-31 04:00] VITALS: BP 136/82
[2016-12-31] MEDS: NORTRIPTYLINE HCL 25 MG CAPSULE PO SCH ×3 (05:00→21:10)
--- NOTE | 2016-12-31 05:03 | NUR ---
RN NOTES: PAMELOR NOT GIVEN PATIENT IS ON NPO.
[2016-12-31 06:46] LABS: BASOPHILS % (AUTO) 0.2 % (0.0-2.0); EOSINOPHILS # (AUTO) 0.1 /CMM (0.0-0.7); EOSINOPHILS % (AUTO) 1.5 % (0.0-6.0); HEMATOCRIT 38 % (39-51); LYMPHOCYTES # (AUTO) 1.4 /CMM (0.8-4.8); LYMPHOCYTES % (AUTO) 15.8 % (20.0-44.0); MEAN CORPUSCULAR HEMOGLOBIN 34 PG (26.0-33.0); MEAN CORPUSCULAR HGB CONC 34 g/dl (31.0-36.0); MEAN CORPUSCULAR VOLUME 99 fL (80-96); MONOCYTES # (AUTO) 0.5 /CMM (0.1-1.30); MONOCYTES % (AUTO) 5.6 % (2.0-12.0); NEUTROPHILS # (AUTO) 6.6 /CMM (1.8-8.9); NEUTROPHILS % (AUTO) 76.9 % (43.0-81.0); PLATELET COUNT (AUTO) 187 /CMM (150-450); RDW COEFFICIENT OF VARIATION 14.3 (11.5-15.0); RED BLOOD CELL COUNT(AUTO) 3.86 MIL/uL (4.5-6.0); WHITE BLOOD COUNT (AUTO) 8.6 K/uL (4.3-11.0)
--- NOTE | 2016-12-31 06:50 | NUR ---
MS RN CLOSING NOTES: PATIENT IN BED, ASLEEP AT THIS TIME, ON ROOM AIR, BREATHING EVEN AND UNLABORED. PIV OVER LFA G 22 INTACT AND PATENT TO FLUSH. PATIENT STILL COMPLAINING OF PAIN OVER ABDOMINAL AREA SCALED AT 8-9/10. DUE MEDS GIVEN. PROVIDED FOR COMFORT AND SAFETY. 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 WILL ENDORSE TO AM RN FOR DILLON.
--- NOTE | 2016-12-31 07:10 | NUR ---
MS RN NOTES RECEIVED PATIENT IN BED, SLEEPING, AROUSES EASILY. ON ROOM AIR, TOLERATING WELL, NO SOB. ABDOMEN DISTENDED, WITH EPISODE OF DIARRHEA LAST NIGHT PER NIGHT NURSE REPORT. APPEARS COMFORTABLE, NO C/O PAIN AT THIS TIME. CALL LIGHT WITHIN REACH. WILL CONT TO MONITOR.
[2016-12-31 07:13] LABS: CALCIUM, SERUM 8.7 mg/dL (8.5-10.1); CREATININE 0.7 mg/dL (0.6-1.3); MAGNESIUM 1.8 mg/dL (1.8-2.4); PHOSPHORUS 3.7 mg/dL (2.5-4.9); POTASSIUM 3.3 mmol/L (3.5-5.1)
[2016-12-31 07:19] LABS: THYROID STIMULATING HORMONE 1.738 uIU/mL (0.358-3.74)
[2016-12-31 08:00] VITALS: BP 113/81
[2016-12-31] MEDS ORDERED: DICYCLOMINE HCL 10 MG CAPSULE PO PRN (08:30)
[2016-12-31] MEDS ORDERED: HYDROCODONE/APAP 5/325MG 1 EACH TABLET PO PRN (08:30)
[2016-12-31] MEDS: LIDOCAINE 5% OINT 35.44 GM TUBE TP SCH ×3 (09:00→17:20)
[2016-12-31] MEDS ORDERED: POLYETHYLENE GLYCOL 3350 17 GM POWD.PACK PO PRN (09:00)
[2016-12-31] MEDS ORDERED: APIXABAN 5 MG TABLET PO ONE (09:00)
[2016-12-31] MEDS: ALLOPURINOL 100 MG TABLET PO SCH ×2 (09:25→17:11)
[2016-12-31] MEDS: MULTIVIT, IRON, MIN NO. 8, FA 1 TAB PO SCH (09:26)
[2016-12-31] MEDS: SIMETHICONE 80 MG TAB.CHEW PO SCH (09:27)
[2016-12-31] MEDS: LISINOPRIL (5MG) 5 MG TABLET PO SCH (09:27)
[2016-12-31] MEDS: METOPROLOL TARTRATE 25 MG TABLET PO SCH ×2 (09:27→17:00)
[2016-12-31] MEDS: clonazePAM 0.5 MG TABLET PO SCH ×2 (09:27→17:10)
[2016-12-31] MEDS: ASCORBIC ACID 500 MG TABLET PO SCH (09:28)
[2016-12-31] MEDS: DIGOXIN 0.125 MG TABLET PO SCH (09:28)
[2016-12-31] MEDS: DOCUSATE SODIUM 250 MG CAPSULE PO SCH (09:29)
[2016-12-31] MEDS: POTASSIUM CHLORIDE 10 MEQ TABLET.SA PO SCH (09:33)
[2016-12-31] MEDS: ACIDOPHILUS/BULGARICUS 1 EACH TAB.CHEW PO SCH ×3 (09:33→17:11)
[2016-12-31] MEDS: FUROSEMIDE 40 MG TABLET PO SCH (09:33)
[2016-12-31] MEDS: PREGABALIN 100 MG CAPSULE PO SCH ×2 (09:33→17:11)
[2016-12-31] MEDS: busPIRone 5 MG TABLET PO SCH ×3 (09:34→17:11)
[2016-12-31] MEDS: PANTOPRAZOLE 40 MG TABLET.DR PO SCH (09:35)
[2016-12-31] MEDS: DULOXETINE HCL 30 MG CAPSULE.DR PO SCH ×2 (09:35→17:10)
[2016-12-31] MEDS: PROSOURCE / PROSTAT (PYXIS) 30 ML UDC PO SCH ×2 (09:41→17:13)
[2016-12-31] MEDS ORDERED: POTASSIUM CHLORIDE 20 MEQ TAB.PRT.SR PO SCH (10:00)
[2016-12-31] MEDS: ONDANSETRON HCL/PF 4 MG/2 ML VIAL IV PRN (14:48)
[2016-12-31 16:00] VITALS: BP 103/60
[2016-12-31] MEDS: APIXABAN 5 MG TABLET PO SCH (17:17)
--- NOTE | 2016-12-31 18:42 | NUR ---
MS RN CLOSING NOTES PATIENT IN BED, AWAKE. NOT IN DISTRESS. ON PAIN MANAGEMENT. PATIENT APPEARS ANXIOUS, BREATHING EVEN AND NON LABORED, SATING 95% ON ROOM AIR. WITH EPISODE OF LOOSE STOOL TODAY, PROVIDED SKIN CARE, KEPT CLEAN AND DRY. FOR GI CONSULT. WILL ENDORSE TO VETERINARIAN POULTRY RN FOR DILLON.
--- NOTE | 2016-12-31 19:00 | NUR ---
MS RN OPENING NOTES PATIENT IN BED, ALERT, TOLERATING ROOM AIR 02 SAT 97% BREATHING EVEN AND UNLABORED. NO S/S OF DISTRESS. CALL LIGHT WITHIN EASY TO REACH. ON LOW BED TO ENSURE SAFETY, WILL CONTINUE TO MONITOR PT.
[2016-12-31 20:00] VITALS: BP 113/69
[2017-01-01] MEDS: HYDROMORPHONE INJ 2 MG/ML DISP.SYRIN IV PRN ×5 (04:13→20:51)
[2017-01-01] MEDS: NORTRIPTYLINE HCL 25 MG CAPSULE PO SCH ×3 (04:13→20:00)
--- NOTE | 2017-01-01 06:34 | NUR ---
MS RN CLOSING NOTES: PATIENT IN BED ASLEEP BUT EASILY AWAKEN ALERT AND ORIENTED X 3. ABLE TO MAKE NEEDS KNOWN SELF TO OTHERS, TOLERATING ROOM AIR O2 SAT AT 99%. BREATHING EVEN AND UNLABORED. GOOD SKIN CARE PROVIDED. LEFT FOREARM 18 G INTACT NO S/S OF INFILTRATION NOTED, NEEDS ATTENDED AND ANTICIPATED, NURSING CARE RENDERED, ON LOW BED AT ALL TIMES, CALL LIGHT WITHIN EASY TO REACH, SAFE HAZARD FREE ENVIRONMENT PROVIDED. NO ACUTE CHANGE IN CONDITION NOTED THROUGH SHIFT. WILL ENDORSE TO THE NEXT SHIFT CONTINUE PLAN OF CARE
[2017-01-01 07:01] LABS: CALCIUM, SERUM 8.7 mg/dL (8.5-10.1); CREATININE 0.9 mg/dL (0.6-1.3); POTASSIUM 3.2 mmol/L (3.5-5.1)
--- NOTE | 2017-01-01 07:06 | NUR ---
MS RN OPENING NOTES: PATIENT RECEIVED ASLEEP IN BED, EASILY AWAKENS. ALERT AND ORIENTED X 3, NO VERBALIZATION OF PAIN OR DISCOMFORTS AT THIS TIME. ABDOMEN STILL NOTED DISTENDED. ON ROOM AIR, BREATHING EVEN AND UNLABORED. IV ACCESS ON LEFT FOREARM 18 G INTACT AND PATENT. BED ON LOW POSITION AND LOCKED, CALL LIGHT WITHIN EASY TO REACH OF PT. WILL CONTINUE TO MONITOR PT ACCORDINGLY.
[2017-01-01 07:43] LABS: APPEARANCE,URINE CLEAR (CLEAR); BILIRUBIN,URINE NEGATIVE (NEGATIVE); BLOOD, URINE NEGATIVE Ery/uL (NEGATIVE); COLOR,URINE YELLOW (YELLOW); KETONES,URINE NEGATIVE (NEGATIVE); LEUKOCYTE ESTERASE ,URINE 1+ (NEGATIVE); NITRITE, URINE POSITIVE (NEGATIVE); PROTEIN,URINE NEGATIVE (NEGATIVE); UGLUCOSE NEGATIVE (NEGATIVE); UROBILINOGEN,URINE 0.2 EU/dL (0.2)
[2017-01-01 08:00] VITALS: BP 133/76
[2017-01-01] MEDS: METOPROLOL TARTRATE 25 MG TABLET PO SCH ×2 (08:43→16:54)
[2017-01-01] MEDS: DOCUSATE SODIUM 250 MG CAPSULE PO SCH (08:43)
[2017-01-01] MEDS: ASCORBIC ACID 500 MG TABLET PO SCH (08:43)
[2017-01-01] MEDS: busPIRone 5 MG TABLET PO SCH ×3 (08:44→16:53)
[2017-01-01] MEDS: ACIDOPHILUS/BULGARICUS 1 EACH TAB.CHEW PO SCH ×3 (08:47→16:52)
[2017-01-01] MEDS: ALLOPURINOL 100 MG TABLET PO SCH ×2 (08:47→16:53)
[2017-01-01] MEDS: SIMETHICONE 80 MG TAB.CHEW PO SCH (08:47)
[2017-01-01] MEDS: MULTIVIT, IRON, MIN NO. 8, FA 1 TAB PO SCH (08:47)
[2017-01-01] MEDS: PREGABALIN 100 MG CAPSULE PO SCH ×2 (08:47→16:53)
[2017-01-01] MEDS: POTASSIUM CHLORIDE 10 MEQ TABLET.SA PO SCH (08:47)
[2017-01-01] MEDS: DULOXETINE HCL 30 MG CAPSULE.DR PO SCH ×2 (08:47→16:52)
[2017-01-01] MEDS: FUROSEMIDE 40 MG TABLET PO SCH (08:48)
[2017-01-01] MEDS: LISINOPRIL (5MG) 5 MG TABLET PO SCH (08:48)
[2017-01-01] MEDS: DIGOXIN 0.125 MG TABLET PO SCH (08:48)
[2017-01-01] MEDS: clonazePAM 0.5 MG TABLET PO SCH ×2 (08:49→16:53)
[2017-01-01] MEDS: LIDOCAINE 5% OINT 35.44 GM TUBE TP SCH ×3 (08:50→16:55)
[2017-01-01] MEDS: PROSOURCE / PROSTAT (PYXIS) 30 ML UDC PO SCH ×2 (08:55→16:55)
[2017-01-01] MEDS: PANTOPRAZOLE 40 MG TABLET.DR PO SCH (08:56)
[2017-01-01] MEDS: APIXABAN 5 MG TABLET PO SCH ×2 (08:56→17:43)
--- NOTE | 2017-01-01 09:50 | NUR ---
RN NOTES PT WITH K 3.2, CORRAL BOSS KENNEY ON UNIT WITH ORDER TO GIVE ONE DOSE OF K-DUR 20MEQ TAB. WILL CONTINUE TO MONITOR.
[2017-01-01] MEDS ORDERED: POLYETHYLENE GLYCOL 3350 17 GM POWD.PACK PO ONE (10:00)
[2017-01-01] MEDS ORDERED: POTASSIUM CHLORIDE 20 MEQ TAB.PRT.SR PO ONE (10:00)
--- NOTE | 2017-01-01 11:41 | NUR ---
RN NOTES CALLED RADIOLOGY DEPT REGARDING PT'S XR BARIUM ENEMA WITH AIR CONTRAST AND SAID THAT THEY WILL DO IT TOMORROW MORNING, 01/02/2017 AND LET TOMORROW THE DAY SHIFT NURSE TO FOLLOW-UP THE TIME OF THE PROCEDURE. PT SHOULD BE NPO POST MIDNIGHT. EXPLAINED PROCEDURE TO PT AND VERBALIZED UNDERSTANDING. WILL CONTINUE TO MONITOR.
[2017-01-01 16:00] VITALS: BP 125/70
--- NOTE | 2017-01-01 18:50 | NUR ---
MS RN CLOSING NOTES: PATIENT AWAKE AND RESTING IN BED. ALERT AND ORIENTED X 3. ABLE TO VOICED OUT NEEDS AND CONCERNS. C/O PAIN TO ABDOMEN WITH INTENSITY OF 10/10 DURING TOUR, PRN DILAUDID 2MG IV GIVEN ORDERED. ABDOMEN REMAINS DISTENDED, FOR XR BARIUM ENEMA WITH AIR CONTRAST TOMORROW. NPO POST MIDNIGHT. ALL NEEDS AND CARE PROVIDED WELL. ON ROOM AIR, BREATHING EVEN AND UNLABORED. IV ACCESS ON LEFT FOREARM G#18 INTACT AND PATENT, FLUSHING WELL. HOB KEPT ELEVATED. KEPT BED ON LOW POSITION AND LOCKED, CALL LIGHT WITHIN EASY TO REACH OF PT. ALL SAFETY MEASURES MAINTAINED. WILL ENDORSED TO CLOTHES MODEL NURSE FOR DILLON.
--- NOTE | 2017-01-01 19:44 | NUR ---
MS RN INITIAL NOTES PT IS SLEEPING IN BED, EASILY AROUSED. NO SIGNS OF SOB OR DISTRESS. DENIES PAIN AT THIS TIME. BED IS IN LOW AND LOCKED POSITION, CALL LIGHT IS WITHIN REACH. WILL CONTINUE TO MONITOR PT.
[2017-01-01 20:00] VITALS: BP 114/76
[2017-01-02] MEDS: HYDROMORPHONE INJ 2 MG/ML DISP.SYRIN IV PRN ×7 (04:21→23:54)
[2017-01-02] MEDS: NORTRIPTYLINE HCL 25 MG CAPSULE PO SCH ×3 (05:00→21:00)
--- NOTE | 2017-01-02 06:38 | NUR ---
MS RN CLOSING NOTES PT IS IN BED SLEEP, A/O X3 ABLE TO MAKE NEEDS KNOWN. NPO STATUS WAS INITIATED POST MIDNIGHT, PT UNDERSTANDS THE PROCEDURE, PT HAD ONE BM. IV ACCESS IS INTACT, COMPLAINTS OF ON AND OFF PAIN, IS A HARD STICK REQUESTS SOMEONE TO CHANGE IT IN AM. . PICTURES WERE TAKEN AND PLACED IN CHART. PAIN MEDS WERE GIVEN NEEDED WILL ENDORSE TO DAY SHIFT
[2017-01-02] MEDS: PANTOPRAZOLE 40 MG TABLET.DR PO SCH (07:30)
[2017-01-02 08:00] VITALS: BP 102/67
--- NOTE | 2017-01-02 08:16 | NUR ---
WOUND CARE CONSULT PATIENT SEEN AND SKIN ASSESSED. PATIENT NON AMBULATORY AND NEEDS MINIMAL ASSISTANCE WITH TURNING AND REPOSITIONING. PATIENT IS ON AN ISOFLEX AIR MATTRESS. FOR BUTTOCKS AND SACRAL REDNESS AND EXCORIATION, AND ABDOMINAL FOLD REDNESS, RECOMMEND CLEANSING WITH NS, PAT DRY, AND APPLY ZGUARD DAILY AND PRN SOILING. FOR HORTENSIA SCABS AND ULCERATIONS ON THE BILATERAL LOWER EXTREMITIES, DEFER TREATMENT TO PODIATRY. TREATMENT PLAN DISCUSSED WITH NURSING STAFF. WILL CONTINUE TO FOLLOW PATIENT NEEDED. Addendum: 01/02/17 at 0820 by PRIYANKA GRIFFITH RN Amended: Links added.
--- NOTE | 2017-01-02 08:30 | NUR ---
RN MS NOTES PT IN BED, AWAKE, ALERT AND ORIENTED, WITH COMPLAINT OF ABDOMINAL AND BACK PAIN, PAIN MEDICATION GIVEN ORDERED, WILL REASSESS NEEDED, SEEN BY WOUND CARE NURSE, PLAN OF CARE DISCUSSED, VERBALIZED UNDERSTANDING, CALL LIGHT PLACED WITHIN REACH, KEPT WARM AND COMFORTABLE IN BED.
[2017-01-02] MEDS: PREGABALIN 100 MG CAPSULE PO SCH ×3 (09:00→16:43)
[2017-01-02] MEDS: DULOXETINE HCL 30 MG CAPSULE.DR PO SCH ×3 (09:00→16:44)
[2017-01-02] MEDS: MULTIVIT, IRON, MIN NO. 8, FA 1 TAB PO SCH (09:00)
[2017-01-02] MEDS: clonazePAM 0.5 MG TABLET PO SCH ×3 (09:00→16:43)
[2017-01-02] MEDS: ALLOPURINOL 100 MG TABLET PO SCH ×3 (09:00→16:43)
[2017-01-02] MEDS: ASCORBIC ACID 500 MG TABLET PO SCH (09:00)
[2017-01-02] MEDS: POTASSIUM CHLORIDE 10 MEQ TABLET.SA PO SCH (09:00)
[2017-01-02] MEDS: DIGOXIN 0.125 MG TABLET PO SCH (09:00)
[2017-01-02] MEDS: SIMETHICONE 80 MG TAB.CHEW PO SCH (09:00)
[2017-01-02] MEDS: DOCUSATE SODIUM 250 MG CAPSULE PO SCH ×2 (09:00→13:33)
[2017-01-02] MEDS: APIXABAN 5 MG TABLET PO SCH ×2 (09:00→16:44)
[2017-01-02] MEDS: PROSOURCE / PROSTAT (PYXIS) 30 ML UDC PO SCH ×2 (09:00→16:43)
[2017-01-02] MEDS: METOPROLOL TARTRATE 25 MG TABLET PO SCH ×2 (09:00→17:00)
[2017-01-02] MEDS: FUROSEMIDE 40 MG TABLET PO SCH (09:00)
[2017-01-02] MEDS: busPIRone 5 MG TABLET PO SCH ×3 (09:00→16:44)
[2017-01-02] MEDS: ACIDOPHILUS/BULGARICUS 1 EACH TAB.CHEW PO SCH ×3 (09:00→16:43)
[2017-01-02] MEDS: LISINOPRIL (5MG) 5 MG TABLET PO SCH (09:00)
[2017-01-02] MEDS ORDERED: MAGNESIUM CITRATE 296 ML BOTTLE PO ONE (11:00)
[2017-01-02] MEDS: LIDOCAINE 5% OINT 35.44 GM TUBE TP SCH ×3 (11:34→16:43)
--- NOTE | 2017-01-02 12:05 | NUR ---
RN MS NOTES PT IN BED, AWAKE, ALERT AND ORIENTED, PAIN MEDICATION GIVEN FOR PAIN MANAGEMENT, SEEN BY CATE IP ATTORNEY, NEW ORDERS MADE AND CARRIED OUT, PT ABLE TO AMBULATE WITH A WALKER WITH STANDBY ASSISTANCE, TOLERATED WELL, CALL LIGHT WITHIN REACH, NEEDS ATTENDED.
[2017-01-02 16:00] VITALS: BP 117/73
--- NOTE | 2017-01-02 18:25 | NUR ---
RN MS NOTES PT IN BED, RESTING, PAIN MEDICATION GIVEN FOR PAIN MANAGEMENT ORDERED, BREATHING PATTERN NORMAL AND NOT LABORED, PT NPO FOR BARIUM ENEMA WITH AIR CONTRAST TOMORROW, PT INFORMED OF PLAN OF CARE, VERBALIZED UNDERSTANDING, CALL LIGHT WITHIN REACH, ALL NEEDS ATTENDED.
--- NOTE | 2017-01-02 19:30 | NUR ---
MS RN OPENING NOTES: PATIENT IN BED, AOX4, ON ROOM AIR, BREATHING EVEN AND UNLABORED, APPEARS CALM AND IN NO DISTRESS, HOWEVER VERBALIZED THAT HE HAS 8 "GOING TO 9" OUT OF 10 PAIN OVER HIS ANTERIOR ABDOMEN RADIATING TO HIS LOWER BACK. EXPLAINED SCHEDULE OF PRN PAIN MEDS. PIV OVER RFA G 22 INTACT AND PATENT TO FLUSH. PROVIDED FOR COMFORT AND SAFETY. BED IN LOWEST AND LOCKED POSITION, SIDERAILS UP X3. WILL CONT TO MONITOR.
[2017-01-02 20:00] VITALS: BP 108/56
--- NOTE | 2017-01-02 20:45 | NUR ---
RN NOTES: PATIENT COMPLAINED OF 9/10 PAIN OVER HIS ANTERIOR ABDOMEN AND LOWER BACK. EXPLAINED TO PATIENT THAT IT WAS RECOMMENDED BY MD TO DECREASE NARCOTIC PAIN MEDICATIONS. HOWEVER, PATIENT STILL ASKED FOR DILAUDID. PRN DILAUDID 2 MG IV PRN GIVEN AT THIS TIME. PROVIDED FOR COMFORT.
[2017-01-02 23:54] VITALS: BP 130/66
[2017-01-03] MEDS: HYDROMORPHONE INJ 2 MG/ML DISP.SYRIN IV PRN ×7 (04:15→23:10)
[2017-01-03] MEDS: NORTRIPTYLINE HCL 25 MG CAPSULE PO SCH ×3 (05:00→20:06)
--- NOTE | 2017-01-03 06:55 | NUR ---
MS RN CLOSING NOTES: PATIENT IN BED, AOX4, ON ROOM AIR, BREATHING EVEN AND UNLABORED. MAINTAINED ON NPO SINCE DINNER YESTERDAY FOR BARIUM ENEMA X RAY AT 11 AM. APPEARS CALM AND IN NO DISTRESS, ALTHOUGH STILL COMPLAINING OF 8/10 PAIN OVER ABDOMEN EXTENDING TO LOWER BACK. DUE MEDS GIVEN. PROVIDED FOR COMFORT AND SAFETY. VSS. MORNING CARE RENDERED. PROVIDED FOR COMFORT AND SAFETY. WILL ENDORSE TO AM RN FOR DILLON.
[2017-01-03 07:03] VITALS: BP 134/83
[2017-01-03 07:24] LABS: BASOPHILS % (AUTO) 0.4 % (0.0-2.0); EOSINOPHILS # (AUTO) 0.2 /CMM (0.0-0.7); EOSINOPHILS % (AUTO) 4.1 % (0.0-6.0); HEMATOCRIT 37 % (39-51); HEMOGLOBIN 12.7 g/dL (13.5-17.5); LYMPHOCYTES % (AUTO) 38.7 % (20.0-44.0); MEAN CORPUSCULAR HEMOGLOBIN 34 PG (26.0-33.0); MEAN CORPUSCULAR HGB CONC 34 g/dl (31.0-36.0); MEAN CORPUSCULAR VOLUME 99 fL (80-96); MONOCYTES # (AUTO) 0.4 /CMM (0.1-1.30); MONOCYTES % (AUTO) 6.7 % (2.0-12.0); NEUTROPHILS # (AUTO) 2.6 /CMM (1.8-8.9); NEUTROPHILS % (AUTO) 50.1 % (43.0-81.0); PLATELET COUNT (AUTO) 171 /CMM (150-450); RDW COEFFICIENT OF VARIATION 14.4 (11.5-15.0); RED BLOOD CELL COUNT(AUTO) 3.74 MIL/uL (4.5-6.0); WHITE BLOOD COUNT (AUTO) 5.2 K/uL (4.3-11.0)
[2017-01-03 07:49] LABS: CALCIUM, SERUM 8.7 mg/dL (8.5-10.1); CREATININE 0.7 mg/dL (0.6-1.3); POTASSIUM 3.8 mmol/L (3.5-5.1)
[2017-01-03 08:00] VITALS: BP 134/83
--- NOTE | 2017-01-03 08:08 | NUR ---
RN OPENING NOTES PATIENT A/OX4. PATIENT IS RESTING COMFORTABLY IN BED AT THIS TIME. PATIENT HAS BEEN NPO SINCE 1700 LAST NIGHT. PATIENT COMPLAINING OF 6/10 AT THIS TIME. PATIENT VERBALIZED UNDERSTANDING OF EXPECTED XR BARIUM ENEMA PROCEDURE TODAY AT 1100. PATIENT SHOWING NO S/S OF ACUTE DISTRESS. PATIENT DENIES SOB. RESPIRATIONS APPEAR TO BE EVEN AND UNLABORED AT THIS TIME. CALL LIGHT WITHIN REACH. BED LOCKED IN THE LOWEST POSITION WITH SIDE RAILS UP X2. WILL CONTINUE TO MONITOR PATIENT.
[2017-01-03] MEDS: PROSOURCE / PROSTAT (PYXIS) 30 ML UDC PO SCH ×2 (09:00→16:37)
[2017-01-03] MEDS: METOPROLOL TARTRATE 25 MG TABLET PO SCH ×2 (09:00→16:36)
[2017-01-03] MEDS: LIDOCAINE 5% OINT 35.44 GM TUBE TP SCH ×3 (09:00→17:19)
[2017-01-03] MEDS: LISINOPRIL (5MG) 5 MG TABLET PO SCH (09:00)
[2017-01-03] MEDS: FUROSEMIDE 40 MG TABLET PO SCH (09:00)
[2017-01-03] MEDS: ACIDOPHILUS/BULGARICUS 1 EACH TAB.CHEW PO SCH ×3 (09:00→16:35)
[2017-01-03] MEDS: busPIRone 5 MG TABLET PO SCH ×3 (09:00→16:35)
[2017-01-03] MEDS: APIXABAN 5 MG TABLET PO SCH ×2 (09:00→16:35)
--- NOTE | 2017-01-03 09:00 | NUR ---
RN MS NOTES 0900 MEDS NOT GIVEN, PT ON NPO, SCHEDULED FOR BARIUM ENEMA TEST TODAY.
--- NOTE | 2017-01-03 09:30 | NUR ---
RN NOTES MORNING MEDS HELD. PATIENT EXPECTED TO HAVE BARIUM ENEMA. PATIENT CURRENTLY NPO.
[2017-01-03] MEDS ORDERED: DIATR MEGLU/DIATRIZOATE SODIUM 120 ML BOTTLE (GASTROGRAPHIN) ONE (10:58)
--- NOTE | 2017-01-03 11:24 | NUR ---
RN NOTES PATIENT TAKEN BY X-RAY FOR PROCEDURE-GASTROGRAFIN ENEMA. WILL AWAKE FOR PATIENT TO RETURN TO UNIT.
--- NOTE | 2017-01-03 12:15 | NUR ---
PATIENT RETURNED FROM X-RAY IN STABLE CONDITION. WILL CONTINUE TO MONITOR PATIENT.
--- NOTE | 2017-01-03 12:32 | NUR ---
RN MS NOTES GASTROGRAFIN ENEMA NOT DONE, CATE PUBLIC HEALTH SANITARIAN TECHNICIAN AWARE, SPOKE WITH RADIOLOGIST REGARDING PLAN OF CARE, RECEIVED ORDERS FROM DR. Kyle MAI TO INSERT A RECTAL TUBE, CATE INFORMED.
[2017-01-03] MEDS: ASCORBIC ACID 500 MG TABLET PO SCH (13:33)
[2017-01-03] MEDS: PANTOPRAZOLE 40 MG TABLET.DR PO SCH (13:34)
[2017-01-03] MEDS: SIMETHICONE 80 MG TAB.CHEW PO SCH (13:34)
[2017-01-03] MEDS: PREGABALIN 100 MG CAPSULE PO SCH ×2 (13:34→16:35)
[2017-01-03] MEDS: clonazePAM 0.5 MG TABLET PO SCH ×2 (13:34→16:36)
[2017-01-03] MEDS: POTASSIUM CHLORIDE 10 MEQ TABLET.SA PO SCH (13:34)
[2017-01-03] MEDS: MULTIVIT, IRON, MIN NO. 8, FA 1 TAB PO SCH (13:34)
[2017-01-03] MEDS: ALLOPURINOL 100 MG TABLET PO SCH ×2 (13:34→16:35)
[2017-01-03] MEDS: DULOXETINE HCL 30 MG CAPSULE.DR PO SCH ×2 (13:34→16:34)
[2017-01-03] MEDS: DOCUSATE SODIUM 250 MG CAPSULE PO SCH (13:34)
[2017-01-03] MEDS: DIGOXIN 0.125 MG TABLET PO SCH (13:35)
[2017-01-03 16:00] VITALS: BP 126/78
--- NOTE | 2017-01-03 18:11 | NUR ---
RN NOTES RECTAL TUBE PLACED. AGGIE LÓPEZ AT BEDSIDE FOR ASSISTANCE. PATIENT TOLERATED PROCEDURE WELL. RECTAL TUB BALLOON INFLATED WITH 42 ML OF NS. STOOL AND GAS DRAINING IMMEDIATELY UPON PLACEMENT. STOOL IS BROWN LIQUID. WILL CONTINUE TO MONITOR PATIENT.
--- NOTE | 2017-01-03 18:43 | NUR ---
RN CLOSING NOTES PATIENT A/OX4. PATIENT IS RESTING COMFORTABLY IN BED AT THIS TIME. FLEXISEAL PLACED PER DR. MAI. PATIENT URINATING IN URINAL. PATIENT ON CLEAR LIQUID DIET. PATIENT DID NOT RECEIVE GASTROGRAFIN PER RADIOLOGIST. PATIENT COMPLAINING OF 8/10 AT THIS TIME IN THE ABDOMEN AND LOWER BACK. PAIN MEDS GIVEN Q3HR. LAST PAIN MED GIVEN AT 1659. PATIENT SHOWING NO S/S OF ACUTE DISTRESS. PATIENT DENIES SOB. RESPIRATIONS APPEAR TO BE EVEN AND UNLABORED AT THIS TIME. PATIENT O2 SAT ADEQUATE ON RA. ALL NEEDS TENDED TO THROUGHOUT SHIFT. CALL LIGHT WITHIN REACH. BED LOCKED IN THE LOWEST POSITION WITH SIDE RAILS UP X2. WILL GIVE REPORT TO IMMERSION METALCLEANER RN FOR CONTINUATION OF CARE.
[2017-01-03] MEDS: NEOMY SULF/BACITRAC ZN/POLY 15 GM TUBE TP SCH (18:50)
--- NOTE | 2017-01-03 19:45 | NUR ---
MS RN NOTE: PATIENT RESTING IN BED, NO ACUTE DISTRESS NOTED. BREATHING EVEN AND UNLABORED, NO SOB NOTED. FLEXISEAL IN PLACE. IV TO RFA IN PLACE. BED LOCKED AND IN LOWEST POSITION, CALL LIGHT IN REACH. WILL CONTINUE TO MONITOR.
[2017-01-03 20:00] VITALS: BP 101/60
--- NOTE | 2017-01-03 20:15 | NUR ---
MS RN NOTE: PATIENT COMPLAINS OF BACK PAIN 01/12, DILAUDID 2MG IV GIVEN PER MD ORDER. WILL CONTINUE TO MONITOR.
--- NOTE | 2017-01-03 23:15 | NUR ---
MS RN NOTE: PATIENT COMPLAINS OF BACK PAIN 02/12, DILAUDID 2MG IV GIVEN PER MD ORDER. WILL CONTINUE TO MONITOR.
[2017-01-04] MEDS: HYDROMORPHONE INJ 2 MG/ML DISP.SYRIN IV PRN ×6 (02:00→20:40)
--- NOTE | 2017-01-04 02:04 | NUR ---
MS RN NOTE: PATIENT COMPLAINS OF BACK PAIN 02/12, DILAUDID 2MG IV GIVEN PER MD ORDER. WILL CONTINUE TO MONITOR.
--- NOTE | 2017-01-04 03:30 | NUR ---
MS RN NOTE: PATIENT CONTINUES TO COMPLAIN OF PAIN TO BACK AND BUTTOCK DUE TO THE FLEXISEAL. INFORMED PATIENT THAT HE JUST RECEIVED PAIN MEDICATION AT 2:00AM AND IT IS NOT DUE YET. PATIENT WANTS TO HAVE DOCTOR TO ADJUST DOSE OF MEDICATION. INFORMED THAT I WILL CALL BOARDMARKER MD AND INFORM IF WE CAN CHANGE PAIN MEDICATION. PATIENT WANTS FLEXISEAL TO BE REMOVED DUE TO THE PAIN. EXPLAINED REASON WHY NEEDED AND THAT WE WOULD NEED AN ORDER TO REMOVE. CALLED [facility] [facility]CH[facility], WAITING FOR CALL BACK. WILL CONTINUE TO MONITOR.
[2017-01-04] MEDS: NORTRIPTYLINE HCL 25 MG CAPSULE PO SCH ×3 (05:00→20:40)
--- NOTE | 2017-01-04 07:30 | NUR ---
MS RN AM NOTES PATIENT IN BED, A/OX4. ON RA, NOT IN ANY DISTRESS, C/O 6/10 PAIN ON SACRUM.BUTTOCKS, RECEIVED DILAUDID A WHILE AGO. REFUSES NORCO PO MEDICATIONS. REFUSE TO GET OUT OF BED, USES URINAL, FLEXISEAL IN PLACE WITH BLACK LIQUID ABOUT 400 ML OUT PUT. PATIENT ON FULL LIQUID DIET. SEE NURSING FLOWSHEET FOR SKIN ISSUES. CALL LIGHT WITHIN REACH. BED LOCKED IN THE LOWEST POSITION WITH SIDE RAILS UP X2. WILL CONT TO MONITOR.
[2017-01-04 08:00] VITALS: BP 114/67
--- NOTE | 2017-01-04 09:30 | NUR ---
MS RN NOTES ADMINISTERED DUE MEDS.
[2017-01-04] MEDS: FUROSEMIDE 40 MG TABLET PO SCH (09:34)
[2017-01-04] MEDS: ALLOPURINOL 100 MG TABLET PO SCH ×2 (09:34→16:40)
[2017-01-04] MEDS: PANTOPRAZOLE 40 MG TABLET.DR PO SCH (09:34)
[2017-01-04] MEDS: DOCUSATE SODIUM 250 MG CAPSULE PO SCH (09:34)
[2017-01-04] MEDS: DIGOXIN 0.125 MG TABLET PO SCH (09:34)
[2017-01-04] MEDS: clonazePAM 0.5 MG TABLET PO SCH ×2 (09:34→16:40)
[2017-01-04] MEDS: ASCORBIC ACID 500 MG TABLET PO SCH (09:35)
[2017-01-04] MEDS: DULOXETINE HCL 30 MG CAPSULE.DR PO SCH ×2 (09:35→16:39)
[2017-01-04] MEDS: LISINOPRIL (5MG) 5 MG TABLET PO SCH (09:35)
[2017-01-04] MEDS: ACIDOPHILUS/BULGARICUS 1 EACH TAB.CHEW PO SCH ×3 (09:50→16:38)
[2017-01-04] MEDS: PREGABALIN 100 MG CAPSULE PO SCH ×2 (09:50→16:39)
[2017-01-04] MEDS: busPIRone 5 MG TABLET PO SCH ×3 (09:50→16:39)
[2017-01-04] MEDS: POTASSIUM CHLORIDE 10 MEQ TABLET.SA PO SCH (09:50)
[2017-01-04] MEDS: MULTIVIT, IRON, MIN NO. 8, FA 1 TAB PO SCH (09:50)
[2017-01-04] MEDS: METOPROLOL TARTRATE 25 MG TABLET PO SCH ×2 (09:51→16:39)
[2017-01-04] MEDS: PROSOURCE / PROSTAT (PYXIS) 30 ML UDC PO SCH ×2 (09:51→16:41)
[2017-01-04] MEDS: APIXABAN 5 MG TABLET PO SCH ×2 (09:53→16:38)
[2017-01-04] MEDS: SIMETHICONE 80 MG TAB.CHEW PO SCH (09:53)
[2017-01-04] MEDS: LIDOCAINE 5% OINT 35.44 GM TUBE TP SCH ×3 (09:56→16:41)
[2017-01-04] MEDS: NEOMY SULF/BACITRAC ZN/POLY 15 GM TUBE TP SCH (09:56)
[2017-01-04 16:00] VITALS: BP 110/71
[2017-01-04 18:00] VITALS: BP 110/71
--- NOTE | 2017-01-04 18:42 | NUR ---
MS RN CLOSING NOTES PATIENT RESTING IN BED. A/OX4. ON RA, NOT IN ANY DISTRESS, STILL C/O 4/10 PAIN ON SACRUM.BUTTOCKS, RECEIVED DILAUDID A WHILE AGO. REFUSES NORCO PO MEDICATIONS. REFUSE TO GET OUT OF BED, USES URINAL, FLEXISEAL IN PLACE WITH BLACK LIQUID ABOUT 300 ML OUT PUT. PATIENT ON FULL LIQUID DIET. CALL LIGHT WITHIN REACH. BED LOCKED IN THE LOWEST POSITION WITH SIDE RAILS UP X2. ALL NEEDS MET, NO OTHER SIGNIFICANT CHANGE IN CONDITION. WILL ENDORSE TO NEXT SHIFT FOR DILLON. PER MUNIRA CHARGE NURSE, CATE MOULTON TO SEE PATIENT AND WILL TALK TO HIM RE FLEXISEOSCAR FINLEY UNCOMFORTABLE.
--- NOTE | 2017-01-04 19:35 | NUR ---
RN OPENING NOTES RECEIVED REPORT FROM MELISSA GUO RN. FOUND Pt AWAKE, RESTING IN BED. Pt IS A/OX4, VERBAL, ABLE TO MAKE NEEDS KNOWN. NO S/S OF ACUTE DISTRESS OR SOB NOTED. IV ACCESS ON LFA#22G, SL. Pt C/O PAIN, WILL ADMINISTER PRN PAIN MED WHEN DUE. SAFETY MEASURES IN PLACE. BED LOW, LOCKED, HOB ELEVATED, SIDE RAILS UP, CALL LIGHT AND BEDSIDE TABLE WITHIN REACH. WILL CONTINUE TO MONITOR Pt THROUGHOUT THE NIGHT FOR SAFETY. Addendum: 01/04/17 at 2006 by BRISEYDA RICE RN RECEIVED REPORT FROM OMAR GUO RN NOT
[2017-01-04 20:00] VITALS: BP 95/60
[2017-01-05] MEDS: HYDROMORPHONE INJ 2 MG/ML DISP.SYRIN IV PRN ×6 (02:51→19:56)
--- NOTE | 2017-01-05 02:55 | NUR ---
RN NOTES BP 107/65, HR 88, R 18, 02 97% ON RA
[2017-01-05] MEDS: NORTRIPTYLINE HCL 25 MG CAPSULE PO SCH ×3 (05:44→20:00)
[2017-01-05 06:27] LABS: BASOPHILS % (AUTO) 0.2 % (0.0-2.0); EOSINOPHILS # (AUTO) 0.2 /CMM (0.0-0.7); EOSINOPHILS % (AUTO) 2.5 % (0.0-6.0); HEMATOCRIT 37 % (39-51); HEMOGLOBIN 12.9 g/dL (13.5-17.5); LYMPHOCYTES # (AUTO) 1.4 /CMM (0.8-4.8); LYMPHOCYTES % (AUTO) 19.6 % (20.0-44.0); MEAN CORPUSCULAR HEMOGLOBIN 34 PG (26.0-33.0); MEAN CORPUSCULAR HGB CONC 35 g/dl (31.0-36.0); MEAN CORPUSCULAR VOLUME 98 fL (80-96); MONOCYTES # (AUTO) 0.5 /CMM (0.1-1.30); NEUTROPHILS % (AUTO) 70.7 % (43.0-81.0); PLATELET COUNT (AUTO) 198 /CMM (150-450); RED BLOOD CELL COUNT(AUTO) 3.78 MIL/uL (4.5-6.0); WHITE BLOOD COUNT (AUTO) 7.1 K/uL (4.3-11.0)
[2017-01-05 06:43] LABS: CALCIUM, SERUM 9.1 mg/dL (8.5-10.1); CREATININE 0.8 mg/dL (0.6-1.3); POTASSIUM 3.9 mmol/L (3.5-5.1)
--- NOTE | 2017-01-05 06:44 | NUR ---
RN CLOSING NOTES NO SIGNIFICANT CHANGES IN Pt's CONDITION. NO S/S OF ACUTE DISTRESS OR SOB NOTED DURING THE NIGHT. ALL NEEDS MET AND ATTENDED TO. SAFETY MEASURES CARRIED OUT. WILL ENDORSE TO DAYSHIFT RN FOR Pt's DILLON.
--- NOTE | 2017-01-05 07:48 | NUR ---
RN MS NOTES RECEIVED PATIENT IN BED, NO APPARENT DISTRESS NOTED. PATIENT A/0 X3, VERBALLY RESPONSIVE, DENIES PAIN, DENIES SOB. LFA IV PATENT, RECTAL TUBE IN PLACE. ALL NEEDS MET, CALL LIGHT WITHIN REACH.
[2017-01-05 08:00] VITALS: BP 102/55
[2017-01-05] MEDS: busPIRone 5 MG TABLET PO SCH ×3 (08:47→17:52)
[2017-01-05] MEDS: DULOXETINE HCL 30 MG CAPSULE.DR PO SCH ×2 (08:48→17:52)
[2017-01-05] MEDS: DOCUSATE SODIUM 250 MG CAPSULE PO SCH (08:48)
[2017-01-05] MEDS: PREGABALIN 100 MG CAPSULE PO SCH ×2 (08:48→17:52)
[2017-01-05] MEDS: SIMETHICONE 80 MG TAB.CHEW PO SCH (08:48)
[2017-01-05] MEDS: ALLOPURINOL 100 MG TABLET PO SCH ×2 (08:48→17:52)
[2017-01-05] MEDS: ACIDOPHILUS/BULGARICUS 1 EACH TAB.CHEW PO SCH ×3 (08:48→17:52)
[2017-01-05] MEDS: POTASSIUM CHLORIDE 10 MEQ TABLET.SA PO SCH (08:49)
[2017-01-05] MEDS: MULTIVIT, IRON, MIN NO. 8, FA 1 TAB PO SCH (08:49)
[2017-01-05] MEDS: FUROSEMIDE 40 MG TABLET PO SCH (08:49)
[2017-01-05] MEDS: PANTOPRAZOLE 40 MG TABLET.DR PO SCH (08:49)
[2017-01-05] MEDS: METOPROLOL TARTRATE 25 MG TABLET PO SCH ×2 (08:49→17:00)
[2017-01-05] MEDS: ASCORBIC ACID 500 MG TABLET PO SCH (08:49)
[2017-01-05] MEDS: LISINOPRIL (5MG) 5 MG TABLET PO SCH (08:50)
[2017-01-05] MEDS: DIGOXIN 0.125 MG TABLET PO SCH (08:51)
[2017-01-05] MEDS: APIXABAN 5 MG TABLET PO SCH ×2 (08:53→17:54)
[2017-01-05] MEDS: PROSOURCE / PROSTAT (PYXIS) 30 ML UDC PO SCH ×2 (08:53→17:54)
[2017-01-05] MEDS: LIDOCAINE 5% OINT 35.44 GM TUBE TP SCH ×3 (08:54→17:00)
[2017-01-05] MEDS: NEOMY SULF/BACITRAC ZN/POLY 15 GM TUBE TP SCH (08:55)
[2017-01-05] MEDS: clonazePAM 0.5 MG TABLET PO SCH ×2 (08:56→17:52)
--- NOTE | 2017-01-05 11:05 | NUR ---
RN MS NOTES PATIENT REFUSES TO BE REPOSITIONED. SATES HE WILL NOT MOVE AROUND UNTIL RECTAL TUBE IS PULLED OUT.
--- NOTE | 2017-01-05 13:00 | NUR ---
RN MS NOTES PATIENT STATES HE DOES NOT WANT TO BE REPOSITIONED, STATES HIS SACRUM HURTS AND WONT MOVE UNTIL THE RECTAL TUBE IS OUT.
--- NOTE | 2017-01-05 13:00 | NUR ---
RECEIVED NEW TELEPHONE ORDERS FROM CATE GEOTECHNICAL ENGINEERING TECHNICIAN TO CHANGE DILAUDID TO Q4HRS. ALL ORDERS NOTED AND CARRIED OUT.
[2017-01-05 16:00] VITALS: BP 107/64
--- NOTE | 2017-01-05 16:30 | NUR ---
rn ms notes removed flexiseal, tolerated well. wound tx done
[2017-01-05] MEDS ORDERED: HYDROMORPHONE INJ 2 MG/ML DISP.SYRIN IV PRN (17:00)
--- NOTE | 2017-01-05 18:56 | NUR ---
RN MS CLOSING NOTES PATIENT IN BED, NO APPARENT DISTRESS NOTED, DENIES SOB, C/O OF PAIN IN THE SACRUM. ALL DUE MEDS GIVEN ALL NEEDS MET. LFA IV PATENT, RECTAL TUBE REMOVED, TOLERATED WELL. WILL ENDORSE CARE TO PM SHIFT.
--- NOTE | 2017-01-05 19:00 | NUR ---
RN NOTE RECIEVED REPORT. PT AAOX4, NO C/O PAIN OR DISCOMFT AT THIS TIME. NO S/S OF ANY DISTRESS. IV INTACT AND PATENT, WILL CONT TO MONITOR.
[2017-01-05 20:00] VITALS: BP 110/50
[2017-01-06] MEDS: HYDROMORPHONE INJ 2 MG/ML DISP.SYRIN IV PRN ×4 (00:09→21:48)
[2017-01-06] MEDS: NORTRIPTYLINE HCL 25 MG CAPSULE PO SCH ×3 (04:42→21:48)
--- NOTE | 2017-01-06 06:41 | NUR ---
RN NOTE NO SIGNIFICANT CHANGES OVERNIGHT. PAIN MANAGED EFFECTIVELY T/O SHIFT WITH PRN. NO S/S OF ANY DISTRESS AT THIS TIME, PT IS RESTING WITH EYES CLOSED. IV INTACT AND PATENT. WILL F/U WITH DAY SHIFT FOR DILLON. AWAITING SNF PLACEMENT.
--- NOTE | 2017-01-06 07:30 | NUR ---
RN MS NOTES RECEIVED PATIENT IN BED RESTING, AROUSES EASILY. A/OX4. NO ACUTE DISTRESS, NO SOB NOTED. DENIES ANY PAIN OR DISCOMFORT. IV SITE INTACT AND PATENT. KEPT PATIENT SAFE AND COMFORTABLE. BED IN L OW POSITION, SIDERAILS UPX2. CALL LIGHT WITHIN REACH. WILL CONTINUE TO MONITOR ACCORDINGLY.
[2017-01-06 08:00] VITALS: BP 119/80
[2017-01-06] MEDS: ALLOPURINOL 100 MG TABLET PO SCH ×2 (09:05→18:25)
[2017-01-06] MEDS: DULOXETINE HCL 30 MG CAPSULE.DR PO SCH ×2 (09:05→18:24)
[2017-01-06] MEDS: ASCORBIC ACID 500 MG TABLET PO SCH (09:06)
[2017-01-06] MEDS: DOCUSATE SODIUM 250 MG CAPSULE PO SCH (09:06)
[2017-01-06] MEDS: busPIRone 5 MG TABLET PO SCH ×3 (09:06→18:25)
[2017-01-06] MEDS: ACIDOPHILUS/BULGARICUS 1 EACH TAB.CHEW PO SCH ×3 (09:07→18:24)
[2017-01-06] MEDS: FUROSEMIDE 40 MG TABLET PO SCH (09:07)
[2017-01-06] MEDS: LISINOPRIL (5MG) 5 MG TABLET PO SCH (09:10)
[2017-01-06] MEDS: DIGOXIN 0.125 MG TABLET PO SCH (09:10)
[2017-01-06] MEDS: clonazePAM 0.5 MG TABLET PO SCH ×2 (09:11→18:25)
[2017-01-06] MEDS: POTASSIUM CHLORIDE 10 MEQ TABLET.SA PO SCH (09:19)
[2017-01-06] MEDS: PREGABALIN 100 MG CAPSULE PO SCH ×2 (09:19→18:23)
[2017-01-06] MEDS: APIXABAN 5 MG TABLET PO SCH ×2 (09:19→18:29)
[2017-01-06] MEDS: PANTOPRAZOLE 40 MG TABLET.DR PO SCH (09:20)
[2017-01-06] MEDS: SIMETHICONE 80 MG TAB.CHEW PO SCH (09:22)
[2017-01-06] MEDS: METOPROLOL TARTRATE 25 MG TABLET PO SCH ×2 (09:22→18:27)
[2017-01-06] MEDS: PROSOURCE / PROSTAT (PYXIS) 30 ML UDC PO SCH ×2 (09:35→18:27)
[2017-01-06] MEDS: MULTIVIT, IRON, MIN NO. 8, FA 1 TAB PO SCH (09:35)
[2017-01-06] MEDS: NEOMY SULF/BACITRAC ZN/POLY 15 GM TUBE TP SCH (09:37)
[2017-01-06] MEDS: LIDOCAINE 5% OINT 35.44 GM TUBE TP SCH ×3 (09:37→17:00)
[2017-01-06] MEDS: oxyCODONE HCL SR 10MG TAB.SR.12H PO SCH ×2 (12:31→22:40)
[2017-01-06 16:00] VITALS: BP 123/67
--- NOTE | 2017-01-06 18:00 | NUR ---
RN NOTES PATIENT REFUSED TO BE DISCHARGE. DISCHARGE TEACHING/INSTRUCTION, AND EXIT CARE DONE. DISCHARGE PAPERWORK GIVEN TO PATIENT BUT REFUSED TO SIGN.
--- NOTE | 2017-01-06 19:00 | NUR ---
RN CLOSING NOTES PATIENT IN BED RESTING. NO ACUTE DISTRESS NOTED. ALL NEEDS ATTENDED AND PROVIDED. KEPT PATIENT SAFE. BED IN LOW POSITION, LOCKED, SIDERAILS UPX2, CALL LIGHT WITHIN REACH. ENDORSED TO HAIR SPINNER RN FOR CONTINUITY OF CARE.
--- NOTE | 2017-01-06 19:05 | NUR ---
RN NOTE RECEIVED REPORT. PT AAOX4, NO C/O ANY PAIN OR DISCOMFORT AT THIS TIME. IV INTACT AND APTENT. CALL LIGHT IN REACH. WILL MONITOR. PT STATED HE WANTS TO BE DISCHARGED TO "[facility] B/C THEY GIVE DRUGS IV". PT INFORMED THAT THE PLAN WAS TO GO TO [facility].
[2017-01-06 20:27] VITALS: BP 109/63
[2017-01-07] MEDS: HYDROMORPHONE INJ 2 MG/ML DISP.SYRIN IV PRN ×4 (03:47→22:05)
[2017-01-07] MEDS: NORTRIPTYLINE HCL 25 MG CAPSULE PO SCH ×3 (04:05→21:24)
--- NOTE | 2017-01-07 07:00 | NUR ---
RN NOTE PT SLEPT WELL AT NIGHT. NO DISTRESS NOTED AT THIS TIME. IV INTAT AN DPATENT. VSS. CALL LIGHT IN ERACH, WILL F/U WITH DAY SHIFT FOR DILLON.
--- NOTE | 2017-01-07 07:30 | NUR ---
MS RN NOTES RECEIVED REPORT WITH PATIENT A/OX4. RESTING COMFORTABLY IN BED. NO S/S OF SOB OR DISTRESS. IV PATENT AND INTACT. CALL LIGHT WITHIN REACH. BED IS IN LOWEST, LOCKED POSITION. WILL CONTINUE TO MONITOR THROUGHOUT SHIFT.
[2017-01-07 08:00] VITALS: BP 128/83
[2017-01-07] MEDS: DIGOXIN 0.125 MG TABLET PO SCH (09:06)
[2017-01-07] MEDS: clonazePAM 0.5 MG TABLET PO SCH ×2 (09:06→16:12)
[2017-01-07] MEDS: DULOXETINE HCL 30 MG CAPSULE.DR PO SCH ×2 (09:06→16:12)
[2017-01-07] MEDS: PANTOPRAZOLE 40 MG TABLET.DR PO SCH (09:06)
[2017-01-07] MEDS: POTASSIUM CHLORIDE 10 MEQ TABLET.SA PO SCH (09:06)
[2017-01-07] MEDS: FUROSEMIDE 40 MG TABLET PO SCH (09:07)
[2017-01-07] MEDS: SIMETHICONE 80 MG TAB.CHEW PO SCH (09:07)
[2017-01-07] MEDS: ACIDOPHILUS/BULGARICUS 1 EACH TAB.CHEW PO SCH ×3 (09:07→16:12)
[2017-01-07] MEDS: DOCUSATE SODIUM 250 MG CAPSULE PO SCH (09:07)
[2017-01-07] MEDS: busPIRone 5 MG TABLET PO SCH ×3 (09:07→16:12)
[2017-01-07] MEDS: ASCORBIC ACID 500 MG TABLET PO SCH (09:07)
[2017-01-07] MEDS: oxyCODONE HCL SR 10MG TAB.SR.12H PO SCH ×2 (09:07→21:25)
[2017-01-07] MEDS: MULTIVIT, IRON, MIN NO. 8, FA 1 TAB PO SCH (09:07)
[2017-01-07] MEDS: PREGABALIN 100 MG CAPSULE PO SCH ×2 (09:07→16:12)
[2017-01-07] MEDS: ALLOPURINOL 100 MG TABLET PO SCH ×2 (09:07→16:12)
[2017-01-07] MEDS: LISINOPRIL (5MG) 5 MG TABLET PO SCH (09:08)
[2017-01-07] MEDS: METOPROLOL TARTRATE 25 MG TABLET PO SCH ×2 (09:08→16:13)
[2017-01-07] MEDS: APIXABAN 5 MG TABLET PO SCH ×2 (09:15→16:16)
[2017-01-07] MEDS: PROSOURCE / PROSTAT (PYXIS) 30 ML UDC PO SCH ×2 (09:15→16:17)
[2017-01-07] MEDS: NEOMY SULF/BACITRAC ZN/POLY 15 GM TUBE TP SCH (09:15)
[2017-01-07] MEDS: LIDOCAINE 5% OINT 35.44 GM TUBE TP SCH ×3 (09:16→17:00)
--- NOTE | 2017-01-07 15:21 | NUR ---
MS RN NOTES PATIENT STATES HE WANTS A PSYCHIATRIC CONSULT BECAUSE HE FEELS DEPRESSED. MADE AWARE. ORDERED PSYCH CONSULT. WILL MONITOR
[2017-01-07 16:00] VITALS: BP 120/83
--- NOTE | 2017-01-07 18:16 | NUR ---
MS RN NOTES PATIENT IS A/OX4. RESTING COMFORTABLY IN BED. NO S/S OF SOB OR DISTRESS NOTED. IV IS PATENT AND INTACT. SAFETY MEASURES IMPLEMENTED. CALL LIGHT IS WITHIN REACH. ALL PATIENT NEEDS HAVE BEEN MET THROUGHOUT THE DAY. ADEQUATE PAIN MANAGEMENT PROVIDED THROUGHOUT SHIFT. ANSWERED ALL PATIENT QUESTIONS.
--- NOTE | 2017-01-07 19:50 | NUR ---
MS RN NOTES RECEIVED ON BED A/O X4,NO SOB,HAD LARGE LOOSE BM,CLAIMING ITS C-DIFF.UNABLE TO COLLECT SAMPLE,ITS MIXED WITH URINE.LFA SALINE LOCK INTACT AND PATENT,SACRAL REDNESS APPLIED REMEDY FOR SKIN MANAGEMENT.CALL LIGHT IN REACH,NEEDS ANTICIPATED.
[2017-01-07 20:00] VITALS: BP 111/72
--- NOTE | 2017-01-07 21:15 | NUR ---
MS RN NOTES DUE PO MEDS ADMINISTERED.
--- NOTE | 2017-01-07 21:25 | NUR ---
MS RN NOTES OXYCONTIN 10MG PO NOT EFFECTIVE.IT DIDNT REACH REASSESSMENT TIME AND PATIENT ALREADY COMPLAINING OF PAIN ON HIS BACK.
--- NOTE | 2017-01-07 22:05 | NUR ---
MS RN NOTES MEDICATED WITH DILAUDID 2MG IVP ORDERED.
--- NOTE | 2017-01-08 04:00 | NUR ---
MS RN NOTES PAIN MANAGEMENT C/O BACK PAIN 7/10 ON PAIN SCALE,MEDICATED WITH DILAUDID 2MG IVP ORDERED
[2017-01-08] MEDS: HYDROMORPHONE INJ 2 MG/ML DISP.SYRIN IV PRN ×5 (04:01→23:31)
[2017-01-08] MEDS: NORTRIPTYLINE HCL 25 MG CAPSULE PO SCH ×3 (05:19→21:17)
--- NOTE | 2017-01-08 06:54 | NUR ---
MS RN NOTES PAIN MANAGEMENT EFFECTIVE.ON BED SLEEPING,EASILY AROUSABLE TO VERBAL STIMULI.POSSIBLE D/C TO DAY.CALL LIGHT IN REACH,NEEDS ATTENDED.
--- NOTE | 2017-01-08 07:30 | NUR ---
MS RN NOTES RECEIVED REPORT WITH PATIENT RESTING COMFORTABLY IN BED. NO S/S OF SOB OR DISTRESS NOTED. A/OX4. IV IS PATENT AND INTACT. BED IN LOWEST, LOCKED POSITION. CALL LIGHT WITHIN REACH. WILL CONTINUE TO MONITOR THROUGHOUT SHIFT.
[2017-01-08 08:00] VITALS: BP 125/72
[2017-01-08] MEDS: clonazePAM 0.5 MG TABLET PO SCH ×2 (08:34→17:23)
[2017-01-08] MEDS: PREGABALIN 100 MG CAPSULE PO SCH ×2 (08:34→17:23)
[2017-01-08] MEDS: DULOXETINE HCL 30 MG CAPSULE.DR PO SCH ×2 (08:34→17:23)
[2017-01-08] MEDS: busPIRone 5 MG TABLET PO SCH ×3 (08:34→17:23)
[2017-01-08] MEDS: FUROSEMIDE 40 MG TABLET PO SCH (08:34)
[2017-01-08] MEDS: ACIDOPHILUS/BULGARICUS 1 EACH TAB.CHEW PO SCH ×3 (08:34→17:23)
[2017-01-08] MEDS: ALLOPURINOL 100 MG TABLET PO SCH ×2 (08:34→17:23)
[2017-01-08] MEDS: SIMETHICONE 80 MG TAB.CHEW PO SCH (08:34)
[2017-01-08] MEDS: oxyCODONE HCL SR 10MG TAB.SR.12H PO SCH ×2 (08:35→21:31)
[2017-01-08] MEDS: PANTOPRAZOLE 40 MG TABLET.DR PO SCH (08:35)
[2017-01-08] MEDS: DIGOXIN 0.125 MG TABLET PO SCH (08:35)
[2017-01-08] MEDS: MULTIVIT, IRON, MIN NO. 8, FA 1 TAB PO SCH (08:35)
[2017-01-08] MEDS: METOPROLOL TARTRATE 25 MG TABLET PO SCH ×2 (08:36→17:23)
[2017-01-08] MEDS: LISINOPRIL (5MG) 5 MG TABLET PO SCH (08:36)
[2017-01-08] MEDS: POTASSIUM CHLORIDE 10 MEQ TABLET.SA PO SCH (08:36)
[2017-01-08] MEDS: ASCORBIC ACID 500 MG TABLET PO SCH (08:36)
[2017-01-08] MEDS: DOCUSATE SODIUM 250 MG CAPSULE PO SCH (08:36)
[2017-01-08] MEDS: PROSOURCE / PROSTAT (PYXIS) 30 ML UDC PO SCH ×2 (08:40→17:25)
[2017-01-08] MEDS: APIXABAN 5 MG TABLET PO SCH ×2 (08:40→17:23)
[2017-01-08] MEDS: NEOMY SULF/BACITRAC ZN/POLY 15 GM TUBE TP SCH (08:46)
[2017-01-08] MEDS: LIDOCAINE 5% OINT 35.44 GM TUBE TP SCH ×3 (09:00→17:24)
[2017-01-08] MEDS ORDERED: CEPHALEXIN MONOHYDRATE 500 MG CAPSULE PO SCH (09:30)
[2017-01-08] MEDS: CEFTRIAXONE 1 G in IV D5W 50 ML IV SCH (11:06)
[2017-01-08] MEDS ORDERED: HYDROMORPHONE INJ 2 MG/ML DISP.SYRIN IV PRN (13:00)
[2017-01-08] MEDS: ONDANSETRON HCL/PF 4 MG/2 ML VIAL IV PRN (15:32)
[2017-01-08 16:12] VITALS: BP 121/77
--- NOTE | 2017-01-08 19:10 | NUR ---
MS/RN OPENING NOTES PT AWAKE, A/OX4 SITTING UP IN BED. ON ROOM AIR, BREATHING EVEN AND UNLABORED. NO S/S OF DISTRESS NOTED. IV TO RFA PATENT AND INTACT. BED IN LOW/LOCKED POSITION, CALL LIGHT IN REACH. SIDE RAILS UPX2. WILL CONTINUE TO MONITOR
--- NOTE | 2017-01-08 19:24 | NUR ---
MS RN NOTES PATIENT IS A/OX4. NO S/S OF SOB OR DISTRESS. ALL PATIENT NEEDS HAVE BEEN MET. PAIN HAS BEEN ADEQUATELY MANAGED. IV IS PATENT AND INTACT. CALL LIGHT WITHIN REACH. BED IS IN LOWEST, LOCKED POSITION. WILL ENDORSE TO PM SHIFT.
[2017-01-08 20:00] VITALS: BP_SYST 125; BP_SYST 92; BP_DIAS 66; BP_DIAS 77
[2017-01-08 20:29] VITALS: BP 125/77
--- NOTE | 2017-01-08 23:37 | NUR ---
MSRN VERBALIZES INTOLERABLE LOWER SPINE PAIN STATING 10/10 LEVEL OF PAIN. DILAUDED 2MG IVP ADMINISTERED ORDRED. BEDREST INSTRUCTED, SAFETY PRECAUTIONS EMPHASIZED. PATIENT REFUSED TO HAVE ANYTHING DONE INCLUDING REPEAT V/S AND PICTURES . PRIMARY RN NOTIFIED.
--- NOTE | 2017-01-08 23:45 | NUR ---
MS/RN NOTES BP POST ADMINISTRATION OF SCHEDULED OXYCONTIN = 100/61, HR=80. WANTED TO RECHECK BP AGAIN BEFORE ADMINISTRATION OF PRN DILAUDID. PT GOT UPSET AND REFUSED BP RECHECK, DEMANDING THAT I ADMINISTER MEDICATION RIGHT AWAY. ASKED GRINDER AND PLATERSHELBI FOR SECOND OPINION. PT REQUESTING THAT HE GET ANOTHER NURSE. CRN AWARE, WILL CHANGE IF POSSIBLE. PT VERBALIZED UNDERSTANDING. PT REFUSING PICTURES TO BACK SIDE.
[2017-01-09] MEDS: HYDROMORPHONE INJ 2 MG/ML DISP.SYRIN IV PRN ×3 (04:37→12:43)
[2017-01-09] MEDS: NORTRIPTYLINE HCL 25 MG CAPSULE PO SCH ×2 (04:38→12:43)
--- NOTE | 2017-01-09 07:19 | NUR ---
MS RN OPENING NOTES PATIENT RECEIVED AWAKE IN BED IN NO ACUTE SIGNS OF DISTRESS. A/O X4. VERBALLY RESPONSIVE WITH NO C/O PAIN OR DISCOMFORTS AT THIS TIME. ON ROOM AIR, BREATHING EVEN AND UNLABORED. IV ACCESS ON RFA G#22 INTACT AND PATENT, SL ONLY. CALL LIGHT WITHIN REACH. BED LOCKED IN THE LOWEST POSITION WITH SIDE RAILS UP X2. WILL CONTINUE TO MAINTAIN ALL SAFETY MEASURES AND WILL CONTINUE TO MONITOR PT'S STATUS ACCORDINGLY.
--- NOTE | 2017-01-09 07:20 | NUR ---
MS/RN CLOSING NOTES PT ASLEEP, EASILY AROUSABLE. ON ROOM AIR, NO SOB OR DISTRESS NOTED. BREATHING EVEN AND UNLABORED. PAIN ADEQUATELY MANAGED THROUGHOUT SHIFT. IV TO RFA PATENT AND INTACT. ALL NEEDS MET AND ATTENDED. BED IN LOW/LOCKED POSITION, CALL LIGHT IN REACH. SIDE RAILS UPX2. ENDORSED TO AM SHIFT FOR [place].
[2017-01-09 08:00] VITALS: BP 110/69
[2017-01-09] MEDS: POTASSIUM CHLORIDE 10 MEQ TABLET.SA PO SCH (08:35)
[2017-01-09] MEDS: ASCORBIC ACID 500 MG TABLET PO SCH (08:35)
[2017-01-09] MEDS: PANTOPRAZOLE 40 MG TABLET.DR PO SCH (08:35)
[2017-01-09] MEDS: PREGABALIN 100 MG CAPSULE PO SCH (08:35)
[2017-01-09] MEDS: DOCUSATE SODIUM 250 MG CAPSULE PO SCH (08:36)
[2017-01-09] MEDS: ALLOPURINOL 100 MG TABLET PO SCH (08:36)
[2017-01-09] MEDS: FUROSEMIDE 40 MG TABLET PO SCH (08:36)
[2017-01-09] MEDS: MULTIVIT, IRON, MIN NO. 8, FA 1 TAB PO SCH (08:36)
[2017-01-09] MEDS: DIGOXIN 0.125 MG TABLET PO SCH (08:36)
[2017-01-09] MEDS: clonazePAM 0.5 MG TABLET PO SCH (08:37)
[2017-01-09] MEDS: DULOXETINE HCL 30 MG CAPSULE.DR PO SCH (08:37)
[2017-01-09] MEDS: ACIDOPHILUS/BULGARICUS 1 EACH TAB.CHEW PO SCH ×2 (08:37→12:43)
[2017-01-09] MEDS: busPIRone 5 MG TABLET PO SCH ×2 (08:37→12:43)
[2017-01-09 08:38] VITALS: BP 110/69
[2017-01-09] MEDS: LISINOPRIL (5MG) 5 MG TABLET PO SCH (08:38)
[2017-01-09] MEDS: METOPROLOL TARTRATE 25 MG TABLET PO SCH (08:38)
[2017-01-09] MEDS: PROSOURCE / PROSTAT (PYXIS) 30 ML UDC PO SCH (08:39)
[2017-01-09] MEDS: LIDOCAINE 5% OINT 35.44 GM TUBE TP SCH ×2 (08:48→12:43)
[2017-01-09] MEDS: NEOMY SULF/BACITRAC ZN/POLY 15 GM TUBE TP SCH (08:48)
[2017-01-09] MEDS: SIMETHICONE 80 MG TAB.CHEW PO SCH (09:05)
[2017-01-09] MEDS: APIXABAN 5 MG TABLET PO SCH (09:05)
[2017-01-09] MEDS: oxyCODONE HCL SR 10MG TAB.SR.12H PO SCH (09:46)
[2017-01-09] MEDS: CEFTRIAXONE 1 G in IV D5W 50 ML IV SCH (10:23)
--- NOTE | 2017-01-09 11:45 | NUR ---
RN NOTES PATIENT FOR DISCHARGE TO [facility] [place] THIS MORNING. REPORT ALREADY GIVEN TO RN BENCH HAND MACHINE AFSANEH BUT PT REFUSED TO GO. ABDI, INSURANCE AGENCY OWNER, FINISHING AREA OPERATOR, CHARGE NURSE TRIED TO SPOKE TO PT BUT REFUSED TO GO TO SNF BUT AGREED TO BE DISCHARGED HOME. AMBULANCE TRANSPORT ARRANGED AGAIN FOR 1400. WILL CONTINUE TO MONITOR.
--- NOTE | 2017-01-09 12:01 | NUR ---
SW was informed by CHIRAG Marques that pt's ambulance is here to escort pt. to [facility]. ABDI along with field nurse case manager Viral Barton and FUR REPAIRER Ruddy met with pt. bedside due to pt. refusing to leave the hospital. Pt. is medically cleared. Pt. informed FUR REPAIRER Ruddy he does not want to go to [facility] and wants to go home since he is not getting a prescription for Dilaudid at this time. crop grain or livestock farm manager Oralia contacted pt's daughter Linda and informed her that pt. is wanting to be discharged home. Linda informed Oralia, she has a doctor's appt. and will be home after 2PM. Ambulance has been rescheduled for 2PM by [facility] CHIRAG Marques.
--- NOTE | 2017-01-09 15:36 | NUR ---
MOLECULAR BIOLOGY SCIENTIST NOTES AMBULANCE TRANSPORT CAME TO [facility] BUT REFUSED TO BE DISCHARGED HOME AND WANTS TO SPEAK TO TOPOLOGY PROFESSOR. TOPOLOGY PROFESSOR CAME WITH VIDEO GAMES MECHANIC AND SECURITY AND TALKED TO PATIENT. AFTER EXPLAINING HIS CURRENT CONDITION AND STATUS, PT FINALLY AGREED TO BE DISCHARGED HOME. HE LEFT UNIT AT 1515 VIA GURNEY WITH 2 EMT'S IN STABLE CONDITION. ALERT AND ORIENTED X4 AND VERBALLY RESPONSIVE. V/S CHECKED AND RECORDED. NO BELONGINGS OR VALUABLES, CHECKLIST FORM SIGNED BY PT. PHOTOS OF SKIN TAKEN BY COST REDUCTION ENGINEER BUT REFUSED PHOTOS TO BE TAKEN ON HIS BACK/SACRUM. HEALTH TEACHINGS GIVEN AND VERBALIZED UNDERSTANDING. PRESCRIPTIONS GIVEN TO PT. CHARGE NURSE AND MD MADE AWARE OF PT'S DISCHARGE.
== END 2017-01-09 15:15 | DRG 391 ==
LOC: ER 18:39 → MED 21:21
PROVIDERS: ADMIT Nurse Practitioner Acute Care; ATTEND Nurse Practitioner Acute Care
DX: K58.9 Irritable bowel syndrome, unspecified (principal); N17.0 Acute kidney failure with tubular necrosis; L89.151 Pressure ulcer of sacral region, stage 1; I50.22 Chronic systolic (congestive) heart failure; D68.59 Other primary thrombophilia; F33.2 Major depressive disorder, recurrent severe without psychotic features; F11.20 Opioid dependence, uncomplicated; G62.9 Polyneuropathy, unspecified; I48.2 Chronic atrial fibrillation; N39.0 Urinary tract infection, site not specified; E66.3 Overweight; E87.6 Hypokalemia; F41.9 Anxiety disorder, unspecified; G89.4 Chronic pain syndrome; I25.10 Atherosclerotic heart disease of native coronary artery without angina pectoris; I87.2 Venous insufficiency (chronic) (peripheral); K21.9 Gastro-esophageal reflux disease without esophagitis; K40.90 Unilateral inguinal hernia, without obstruction or gangrene, not specified as recurrent; L97.509 Non-pressure chronic ulcer of other part of unspecified foot with unspecified severity; M10.9 Gout, unspecified; K59.09 Other constipation; M20.40 Other hammer toe(s) (acquired), unspecified foot; M21.619 Bunion of unspecified foot; M41.9 Scoliosis, unspecified; B96.20 Unspecified Escherichia coli [E. coli] as the cause of diseases classified elsewhere; R29.6 Repeated falls; R32 Unspecified urinary incontinence; Z68.29 Body mass index [BMI] 29.0-29.9, adult; Z79.01 Long term (current) use of anticoagulants; Z80.7 Family history of other malignant neoplasms of lymphoid, hematopoietic and related tissues; Z82.49 Family history of ischemic heart disease and other diseases of the circulatory system; Z79.899 Other long term (current) drug therapy; M48.06 Spinal stenosis, lumbar region; Z98.890 Other specified postprocedural states; Z88.1 Allergy status to other antibiotic agents; Z88.5 Allergy status to narcotic agent; D53.9 Nutritional anemia, unspecified; L89.899 Pressure ulcer of other site, unspecified stage
CPT/HCPCS: 36415; 71010-TC; 72128-TC; 74000-TC; 80048-TC; 80061-TC; 80076-TC; 81000-TC; 83735-TC; 84100-TC; 84443-TC; 84484-TC; 85025-TC; 85730-TC; 87081-TC; 87086-TC; 87186-TC; 93970-TC; 97001-TC; 97116-TC; 97530-TC; A4606; A6402; J0696; J1170; J2405; J7030; J7050; J7060; Q9963; Z7610

== ENCOUNTER 2017-02-12 22:35 | Emergency (ER) | payer MEDICARE ==
[~2017-02-12] VITALS: Ht 177.8 cm; Wt 90.7 kg
[~2017-02-12 22:35] MED LIST changes: +ACID1TAB12 PO; +AMIN30LI4 PO; -CEPH-570 PO; -HYDR2DIS IV; -LACT1CAP69 PO; -NITR100C6 PO
--- NOTE | 2017-02-12 22:45 | NUR ---
To bed 4 a 71 yo male [facility] ambulance; back pain, chronic in nature, pain too bad a snf. VSS. nad noted. breathing even and unlabored. Gowned. Comfort measures rendered. Awaiting for er md richey.
[2017-02-12] MEDS ORDERED: ONDANSETRON HCL/PF 4 MG/2 ML VIAL ONE (23:11)
[2017-02-12] MEDS ORDERED: HYDROMORPHONE INJ 2 MG/ML DISP.SYRIN ONE (23:11)
[2017-02-12] MEDS ORDERED: HYDROMORPHONE 1 MG/1 ML DISP.SYRIN IV ONE (23:30)
[2017-02-12] MEDS ORDERED: ONDANSETRON HCL/PF 4 MG/2 ML VIAL IV ONE (23:30)
--- NOTE | 2017-02-12 23:57 | NUR ---
[facility] pauline [phone] for [facility] transport trip# [id number]
--- NOTE | 2017-02-13 01:30 | NUR ---
patient refused to go back to [facility] and verbalized, "I would rather go to residential than going back to [facility]. That place is filthy." Dr Ann notified. Spoke with Nurse Ackerman from [facility], and she said the patient has only been there for a day.
--- NOTE | 2017-02-13 01:35 | NUR ---
xr tech at bedside.
--- NOTE | 2017-02-13 01:40 | NUR ---
Dr Ann at bedside talking to patient.
--- NOTE | 2017-02-13 01:45 | NUR ---
Discharge instructions given to patient, teachings done, ascertained needs, however patient still refused to be transferred to [facility] as ordered by Dr Ann.
--- NOTE | 2017-02-13 03:16 | NUR ---
patient is sleeping comfortably at this time.
--- NOTE | 2017-02-13 06:41 | NUR ---
patient made a large bowel movement of soft stools, perineal care done. Provided water with ice per patient's request.
--- NOTE | 2017-02-13 07:19 | NUR ---
Report given to Trinidad MARCIAL for beck.
[2017-02-13 09:30] VITALS: BP 117/79
[2017-02-13] MEDS ORDERED: HYDROMORPHONE 1 MG/1 ML DISP.SYRIN IV ONE (09:30)
[2017-02-13] MEDS ORDERED: HYDROMORPHONE INJ 2 MG/ML DISP.SYRIN ONE ×2 (09:33→09:34)
[2017-02-13] MEDS ORDERED: ONDANSETRON HCL/PF 4 MG/2 ML VIAL ONE (10:18)
[2017-02-13] MEDS: ONDANSETRON HCL/PF 4 MG/2 ML VIAL IVP ONE ×2 (10:19→10:23)
--- NOTE | 2017-02-13 10:20 | NUR ---
REPORT GIVEN TO [facility] STAFF FOR TRANSPORT TO [facility].
== END 2017-02-13 10:50 | disposition home or self-care (01) ==
LOC: ER 22:36
DX: M54.9 Dorsalgia, unspecified (principal); G89.29 Other chronic pain; F41.9 Anxiety disorder, unspecified; I11.0 Hypertensive heart disease with heart failure; I48.91 Unspecified atrial fibrillation; I50.9 Heart failure, unspecified; M10.9 Gout, unspecified; M48.06 Spinal stenosis, lumbar region; Z79.01 Long term (current) use of anticoagulants
CPT/HCPCS: 74022; 96374; 96375; 96376; 99284; A4606; J1170 ×3; J2405 ×2; Z7610